=== PATIENT | female | born 2000 | race Hispanic/Latino ===

== ENCOUNTER 2019-12-29 08:57 | Outpatient (CLI) | payer OTHER, SELFPAY ==
[2019-12-29 09:50] LABS: Hemoglobin A1C 5.2 % (<5.7)
[2019-12-29 10:24] LABS: Thyroid Stimulating Hormone 0.731 uIU/mL (0.465-4.680)
[2019-12-29 10:25] LABS: Free T4 Free Thyroxine 0.67 ng/mL (0.78-2.19)
[2020-01-01 11:55] LABS: Testosterone Total 11 ng/dL (2-45)
[2020-01-01 14:32] LABS: DHEA-Sulfate 61 mcg/dL (51-321)
[2020-01-02 03:21] LABS: Insulin Level Total 29.7 uIU/mL (<=19.6)
[2020-01-02 05:23] LABS: Progesterone 0.3 ng/mL (***); Prolactin 8.7 ng/mL (***)
== END 2019-12-29 08:58 | disposition home or self-care (01) ==
PROVIDERS: PCP Family Medicine; Visit Provider Nurse Practitioner
DX: E28.2 Polycystic ovarian syndrome (principal)
CPT/HCPCS: 36415; 82627; 83036; 83525; 84144; 84146; 84403; 84439; 84443

== ENCOUNTER 2020-02-23 10:03 | Outpatient (CLI) | payer OTHER, SELFPAY ==
[2020-02-23 11:44] LABS: Free T4 Free Thyroxine 0.82 ng/mL (0.78-2.19)
== END 2020-02-23 10:04 | disposition home or self-care (01) ==
PROVIDERS: PCP Family Medicine; Visit Provider Nurse Practitioner
DX: R74.9 Abnormal serum enzyme level, unspecified (principal)
CPT/HCPCS: 36415; 83498; 84439; 84443

== ENCOUNTER 2020-03-16 10:15 | Outpatient (RCR) | payer OTHER, SELFPAY | END 2020-06-12 23:59 | disposition home or self-care (01) | LOC: ANHLAB 10:15 | PROVIDERS: PCP Family Medicine; Visit Provider Obstetrics & Gynecology Gynecology | DX: O26.21 Pregnancy care for patient with recurrent pregnancy loss, first trimester (principal); Z3A.00 Weeks of gestation of pregnancy not specified | CPT/HCPCS: 36415; 84702 ==

== ENCOUNTER 2020-03-20 17:06 | Emergency (ER) | payer OTHER, SELFPAY ==
[2020-03-20 17:12] VITALS: BP 138/107; PULSE 99; RESP 14; TEMP 36.3; O2SAT 100
[2020-03-20 17:26] LABS: Basophils Percent Auto 0.3 % (0.2-1.2); Eosinophils Absolute Auto 0.2 K/mm3 (0-0.3); Eosinophils Percent Auto 1.6 % (0-4.4); Hematocrit 38.9 % (37.0-47.0); Hemoglobin 12.8 g/dL (12.0-15.0); Immature Granulocyte Absolute 0.04 K/mm3 (0.00-0.031); Immature Granulocyte Percent A 0.3 % (0-0.5); Lymphocytes Absolute Auto 4.15 K/mm3 (0.9-3.2); Lymphocytes Percent Auto 30.9 % (18.3-44.2); Mean Corpuscular HGB Conc 32.9 g/dl (32-36); Mean Corpuscular Hemoglobin 28.6 pg (26-34); Monocytes Absolute Auto 0.8 K/mm3 (0.1-0.6); Monocytes Percent Auto 6.3 % (2.6-8.5); Neutrophils Absolute Auto 8.2 K/mm3 (1.3-6.7); Neutrophils Percent Auto 60.6 % (45.5-73.1); Platelet Count Result 317 k/mm3 (150-375); Red Blood Count 4.47 M/mm3 (4.2-5.4); Red Cell Distribution Width 13.2 % (11.5-14.5); White Blood Count 13.4 K/mm3 (4.5-10.0)
--- NOTE | 2020-03-20 17:33 | ED.ABDPAIN ---
HPI - Abdominal Pain General Chief Complaint: Abdominal Pain Stated Complaint: abdominal pain/ Time Seen by Provider: 03/20/20 17:32 History of Present Illness HPI narrative: Upper abdominal pain and bloating since this morning. Associated with mild nausea. She had a recent positive test. LMP 02/10. She is concerned because she has had 2 previous miscarriages. She has not had a bowel movmenet iin 4 days. No nausea, voiting, dysuria, hematuria, vaginal bleeding, discharge. Related Data Allergies Allergy/AdvReac Type Severity Reaction Status Date / Time nevaeh Allergy Unknown Verified 06/05/17 13:06 Nevaeh Allergy Severe Swelling Uncoded 05/08/18 18:39 Review of Systems Review of Systems: All systems reviewed & are unremarkable except as noted in HPI and below Constitutional: Constitutional: Denies fever(s) Cardiovascular: Cardiovascular: Denies chest pain Respiratory: Respiratory: Denies dyspnea Gastrointestinal: Gastrointestinal: Reports abdominal pain, Reports bloating, Reports constipation, Denies diarrhea, Denies nausea and Denies vomiting Genitourinary: Genitourinary: Denies abnormal vaginal bleeding, Denies hematuria, Denies dysuria, Denies pelvic pain and Denies vaginal discharge Musculoskeletal: Musculoskeletal: Denies back pain Neurologic: Denies dizziness and Denies weakness Psychiatric: Psychiatric: Reports anxiety PMFSH Past Medical History Medical History Migraine without aura and without status migrainosus, not intractable On oral contraceptive pills for non-contraception indication PCOS (polycystic ovarian syndrome) Sacrococcygeal pilonidal cyst with abscess Family History Family History Other Diabetes mellitus Hypertension Social History Social History Smoking status: Never smoker Alcohol intake: never Exam Const: General: healthy appearing, no acute distress and alert Orientation/consciousness: patient oriented x3 HENMT: Head: normal to inspection Neck: Neck: normal visual inspection Resp: Effort & Inspection: normal respiratory effort Auscultation: clear to auscultation bilaterally, no rales, no rhonchi and no wheezes Cardio: Jugular venous distension: no JVD Rate: regular rate Rhythm: regular rhythm Heart sounds: no murmurs GI: Inspection: non-distended GI Palp: Yes Soft to palpation, Yes Tenderness to palpation present (GI) (LUQ), No Guarding due to palpation present (GI) and No Rebound tenderness present Skin: General skin exam: normal color Neuro: General: patient oriented x3 and moves all extremities Speech: normal speech Extrem: General: no edema Psych: Appearance: well kempt Affect: normal affect Course Vital Signs Vital signs: Vital Signs Temperature 36.3 C L 03/20/20 17:12 Pulse Rate 99 03/20/20 17:12 Respiratory Rate 14 03/20/20 17:12 Blood Pressure 138/107 H 03/20/20 17:12 Pulse Oximetry 100 03/20/20 17:12 Temperature 36.3 C L 03/20/20 17:12 Pulse Rate 80 03/20/20 18:43 Respiratory Rate 20 03/20/20 18:43 Blood Pressure 128/88 03/20/20 18:43 Pulse Oximetry 100 03/20/20 18:43 MDM - Abdominal Pain MDM Narrative Medical decision making narrative: H&P suggests benign etiology unrelated to . I suggested a trial of stool softeners and OB follow-up. Differential Diagnosis Differential diagnosis: Likely constipation Medical Records Attestation: I reviewed the patient's medical records. Lab Data Attestation: I reviewed the patient's lab results. Result diagrams: 03/20/20 17:20 03/20/20 17:20 Labs: Lab Results 03/20/20 03/20/20 03/20/20 Range/Units 17:20 17:20 17:42 WBC 13.4 H (4.5-10.0) K/mm3 RBC 4.47 (4.2-5.4) M/mm3 Hgb 12.8 (12.0-15.0) g/dL Hct 38.9 (37.0-47.0)
[2020-03-20 17:44] LABS: Alanine Aminotransferase 46 U/L (4-35); Albumin Level 4.4 g/dL (3.5-5.1); Alkaline Phosphatase 67 U/L (38-126); Anion Gap 9 mmol/L (8-16); Aspartate Amino Transferase 43 U/L (14-36); Bilirubin,Total 0.4 mg/dL (0.2-1.3); Blood Urea Nitrogen 5 mg/dL (7-17); Calcium 9.2 mg/dL (8.4-10.2); Carbon Dioxide 25 mmol/L (22-30); Chloride 105 mmol/L (98-107); Estimated CRCL calculation 232 ml/min; Estimated Glomerular Filt Rate > 60; Glucose 91 mg/dL (65-105); Lipase 37 U/L (23-300); Potassium 3.6 mmol/L (3.4-5.0); Sodium 139 mmol/L (137-145)
[2020-03-20 18:05] LABS: Add Urine Microscopic? YES; Appearance Urine Clear (Clear); Bacteria Urine Trace /hpf; Bilirubin Urine Negative (Negative); Blood Urine Negative (Negative); Color Urine Yellow (Yellow); Glucose Urine UA Negative (Negative); Ketones Urine Negative (Negative); Leukocyte Esterase Ur Trace LEU/UL (Negative); Mucus Urine Rare /lpf; Nitrate Urine Negative (Negative); Protein Urine 1+ mg/dL (Negative); Specific Grav Ur 1.016 (1.001-1.035); Squamous Epithelial Cell Urine Moderate /hpf (Few); Urobilinogen Urine Negative mg/dL (<2.0); WBC Urine 0-3 /hpf
[2020-03-20 18:43] VITALS: BP 128/88; PULSE 80; RESP 20; O2SAT 100
== END 2020-03-20 18:47 | disposition home or self-care (01) ==
LOC: ANHED 18:08
PROVIDERS: Emergency Medicine; Emergency Provider Emergency Medicine; PCP Family Medicine
DX: O99.611 Diseases of the digestive system complicating pregnancy, first trimester (principal); K59.00 Constipation, unspecified; O99.281 Endocrine, nutritional and metabolic diseases complicating pregnancy, first trimester; E28.2 Polycystic ovarian syndrome; Z3A.00 Weeks of gestation of pregnancy not specified
CPT/HCPCS: 36415; 80053; 81001; 81025; 83690; 85025; 99283

== ENCOUNTER 2020-03-23 14:35 | Outpatient (CLI) | payer OTHER, SELFPAY ==
--- NOTE | ~2020-03-23 | US_ITS ---
EXAMINATION: US OB <=14 wk fetus w TV EXAM DATE: 03/23/2020 15:27 INDICATION: Uncertain dates. . 1st trimester. TECHNIQUE: Pelvic obstetrical transabdominal sonogram was performed by a technologist. There are mu ltiple grayscale and Doppler images available for interpretation. There are no earlier studies of th is gestation for comparison. FINDINGS: Uterus measures 8.7 x 6.0 x 5.0 cm. There is intrauterine gestation sac. pole with heart rate confirmed at 145 beats per minute. The 4 mm crown-rump length corresponds to estimated ge stational age by ultrasound of 6 weeks 0 days, estimated date of confinement 11/16/2020. Yolk sac is i dentified. There is no sonographic evidence of subchorionic hemorrhage. The ovaries are morpholog ically normal. IMPRESSION: Early live intrauterine gestation, age by crown-rump length 6 weeks 0 days. Reviewed, dictated and finalized at location A. CH TUTOR
== END 2020-03-23 14:36 | disposition home or self-care (01) ==
PROVIDERS: PCP Family Medicine; Visit Provider Nurse Practitioner
DX: Z36.87 Encounter for antenatal screening for uncertain dates (principal); Z3A.01 Less than 8 weeks gestation of pregnancy
CPT/HCPCS: 76801; 76817

== ENCOUNTER 2020-04-25 08:12 | Emergency (ER) | payer OTHER, SELFPAY ==
--- NOTE | ~2020-04-25 | US_ITS ---
EXAMINATION: US OB <= 14 weeks fetus DATE: 04/25/2020 10:09 INDICATION: 11 weeks . Bleeding. TECHNIQUE: Real-time transabdominal obstetric ultrasound. FINDINGS: No prior studies for comparison. The uterus measures 13.3 x 5.6 x 7.4 cm. There is an intrauterine gestational sac, with pole id entified. There is a small subchorionic hemorrhage measuring 1.5 x 2 x 0.6 cm. The crown rump length measures 4.3 cm. heart tones are identified measuring 139 BPM. IMPRESSION: 1. SL IUP with an EGA of 11 weeks, 0 days (EDC by initial ultrasound of 11/14/2020). 2: Small subchorionic hemorrhage. Reviewed, dictated and finalized at location B. ICAL DATA COORDINATOR IMPRESSION: 1. SL IUP with an EGA of 11 weeks, 0 days (EDC by initial ultrasound of 11/15/19 21). 2: Small subchorionic hemorrhage.
[2020-04-25 08:29] VITALS: BP 115/68; PULSE 79; RESP 14; TEMP 36.8; O2SAT 98
--- NOTE | 2020-04-25 09:43 | ED.PREGNANCY ---
HPI - General Chief complaint: Vaginal Bleeding Stated complaint: vag bleeding, 11 weeks preg Time Seen by Provider: 04/25/20 08:24 Source: patient Mode of arrival: ambulatory Limitations: no limitations History of Present Illness HPI Narrative: This is a 19 year old , about 11 weeks , that presents to the ER for vaginal bleeding noted this morning. Reports she noted a dark brown discharge on the tissue when she wiped today. Her OB is Dr. White. She has had a normal US this . Denies fever, pelvic pain, dysuria, or hematuria. Related Data Home Medications Medication Instructions Recorded Confirmed PNV no.[id number] acid tablet PO DAILY 04/25/20 [Complete ] aspirin [Baby Aspirin] 81 mg PO DAILY 04/25/20 metformin 750 mg PO BID 04/25/20 Allergies Allergy/AdvReac Type Severity Reaction Status Date / Time Jean Paul Allergy Severe Swelling Uncoded 04/25/20 08:37 Review of Systems Review of Systems: Narrative: CONSTITUTIONAL: Denies fever GASTROINTESTINAL: Denies abdominal pain, nausea, vomiting GENITOURINARY: Denies dysuria or hematuria. All systems reviewed & are unremarkable except as noted in HPI and below PMFSH Past Medical History Medical History Migraine without aura and without status migrainosus, not intractable On oral contraceptive pills for non-contraception indication PCOS (polycystic ovarian syndrome) Sacrococcygeal pilonidal cyst with abscess Family History Family History Other Diabetes mellitus Hypertension Social History Social History Smoking status: Never smoker Alcohol intake: never Gender identity (if verbalized by the patient): Female Exam Narrative: Exam Narrative: GENERAL: Well-appearing, well-nourished, and in no acute distress. HEAD: Normocephalic, atraumatic. EYES: EOMI. ENT: Mucous membranes moist. Oropharynx without tonsillar hypertrophy exudate or other lesions. CHEST: Clear to auscultation. No respiratory distress. No wheezes rales or rhonchi HEART: Regular rate and rhythm. No murmur heard. Normal peripheral pulses. ABDOMEN: Soft, nontender, nondistended, normal active bowel sounds. EXTREMITIES: Normal range of motion. No edema. SKIN: Warm, dry, no rash. NEURO: No focal deficits. Alert and oriented x3. PSYCH: Normal mood and affect PELVIC: Normal external genitalia. Normal appearing cervix, closed. Small amount of brown discharge in the vaginal vault Course Vital Signs Vital signs: Vital Signs Temperature 98.3 F 04/25/20 08:29 Pulse Rate 79 04/25/20 08:29 Respiratory Rate 14 04/25/20 08:29 Blood Pressure 115/68 04/25/20 08:29 Pulse Oximetry 98 04/25/20 08:29 Temperature 98.3 F 04/25/20 08:29 Pulse Rate 70 04/25/20 11:05 Respiratory Rate 16 04/25/20 11:05 Blood Pressure 130/77 04/25/20 11:05 Pulse Oximetry 98 04/25/20 11:05 MDM - OB/Uterine Contractions MDM Narrative Medical decision making narrative: Patient presents to the emergency department for bleeding noted today. She is 11 weeks . Denied any pelvic cramping or other symptoms. Her vitals are stable. Hemoglobin is 12. Metabolic panel without concerning findings. UA without evidence of infection. Patient is O+. I did notice small amount of probable old blood in the vaginal vault. No bright red bleeding. ultrasound shows a single living IUP with an EGA of 11 weeks and 0 days. Also shows a small subchorionic hematoma. Spoke with Dr. White about patient and workup. Patient to be instructed on nothing in the vagina. No heavy lifting. Would like her to follow-up for repeat ultrasound in the next couple weeks. Patient is stable and felt appropriate for further outpatient valuation. She was given warnings to return to the ER Lab Data Atte
[2020-04-25 09:46] LABS: Basophils Absolute Auto 0.1 K/mm3 (0.0-0.1); Basophils Percent Auto 0.4 % (0.2-1.2); Eosinophils Absolute Auto 0.2 K/mm3 (0-0.3); Eosinophils Percent Auto 1.3 % (0-4.4); Hematocrit 36.9 % (37.0-47.0); Immature Granulocyte Absolute 0.04 K/mm3 (0.00-0.031); Immature Granulocyte Percent A 0.4 % (0-0.5); Lymphocytes Absolute Auto 3.02 K/mm3 (0.9-3.2); Lymphocytes Percent Auto 27.1 % (18.3-44.2); Mean Corpuscular HGB Conc 32.5 g/dl (32-36); Mean Corpuscular Hemoglobin 28.6 pg (26-34); Mean Corpuscular Volume 88.1 fl (80-100); Mean Platelet Volume 9.9 fl (7.4-10.4); Monocytes Absolute Auto 0.5 K/mm3 (0.1-0.6); Monocytes Percent Auto 4.6 % (2.6-8.5); Neutrophils Absolute Auto 7.4 K/mm3 (1.3-6.7); Neutrophils Percent Auto 66.2 % (45.5-73.1); Platelet Count Result 265 k/mm3 (150-375); Red Blood Count 4.19 M/mm3 (4.2-5.4); Red Cell Distribution Width 13.7 % (11.5-14.5); White Blood Count 11.1 K/mm3 (4.5-10.0)
[2020-04-25 11:05] VITALS: BP 130/77; PULSE 70; RESP 16; O2SAT 98
[2020-04-25 11:29] LABS: Add Urine Microscopic? YES; Appearance Urine Clear (Clear); Bacteria Urine Trace /hpf; Bilirubin Urine Negative (Negative); Blood Urine Negative (Negative); Color Urine Straw (Yellow); Glucose Urine UA Negative (Negative); Ketones Urine Negative (Negative); Leukocyte Esterase Ur Trace LEU/UL (Negative); Mucus Urine Rare /lpf; Nitrate Urine Negative (Negative); Protein Urine Negative (Negative); Specific Grav Ur 1.008 (1.001-1.035); Squamous Epithelial Cell Urine Occasional /hpf (Few); Urobilinogen Urine Negative mg/dL (<2.0); WBC Urine 0-3 /hpf
[2020-04-25 11:31] LABS: Anion Gap 12 mmol/L (8-16); Blood Urea Nitrogen 6 mg/dL (7-17); Calcium 9.4 mg/dL (8.4-10.2); Carbon Dioxide 18 mmol/L (22-30); Chloride 108 mmol/L (98-107); Estimated CRCL calculation 237 ml/min; Estimated Glomerular Filt Rate > 60; Glucose 85 mg/dL (65-105); Potassium 3.8 mmol/L (3.4-5.0); Sodium 138 mmol/L (137-145)
[2020-04-25 12:37] VITALS: BP 134/76; PULSE 78; RESP 16; O2SAT 100
== END 2020-04-25 12:38 | disposition home or self-care (01) ==
PROVIDERS: Physician Assistant; Emergency Provider Emergency Medicine; PCP Family Medicine
DX: O46.91 Antepartum hemorrhage, unspecified, first trimester (principal); O99.281 Endocrine, nutritional and metabolic diseases complicating pregnancy, first trimester; E28.2 Polycystic ovarian syndrome; Z3A.11 11 weeks gestation of pregnancy
CPT/HCPCS: 36415; 76801; 80048; 81001; 84702; 85025; 85461; 99284

== ENCOUNTER 2020-05-12 09:13 | Outpatient (RCR) | payer OTHER, SELFPAY ==
[2020-05-12 09:59] LABS: Basophils Percent Auto 0.3 % (0.2-1.2); Eosinophils Absolute Auto 0.2 K/mm3 (0-0.3); Eosinophils Percent Auto 2.2 % (0-4.4); Hematocrit 36.7 % (37.0-47.0); Hemoglobin 11.6 g/dL (12.0-15.0); Immature Granulocyte Absolute 0.04 K/mm3 (0.00-0.031); Immature Granulocyte Percent A 0.4 % (0-0.5); Lymphocytes Absolute Auto 2.93 K/mm3 (0.9-3.2); Lymphocytes Percent Auto 26.3 % (18.3-44.2); Mean Corpuscular HGB Conc 31.6 g/dl (32-36); Mean Corpuscular Hemoglobin 27.7 pg (26-34); Mean Corpuscular Volume 87.6 fl (80-100); Monocytes Absolute Auto 0.6 K/mm3 (0.1-0.6); Monocytes Percent Auto 5.2 % (2.6-8.5); Neutrophils Absolute Auto 7.3 K/mm3 (1.3-6.7); Neutrophils Percent Auto 65.6 % (45.5-73.1); Platelet Count Result 277 k/mm3 (150-375); Red Blood Count 4.19 M/mm3 (4.2-5.4); Red Cell Distribution Width 13.7 % (11.5-14.5); White Blood Count 11.1 K/mm3 (4.5-10.0)
[2020-05-12 10:52] LABS: Vitamin D 25 Hydroxy 32.9 ng/mL
[2020-05-12 10:54] LABS: HIV 1/2 Ab P24 Ag Result Negative (Negative)
[2020-05-12 11:13] LABS: Hepatitis B Surface Antigen Negative (Negative); Rubella IgG Antibody 17.3 IU/ML
[2020-05-13 12:55] LABS: Rapid Plasma Reagin Non-Reactive (NonReactive)
== END 2020-08-10 23:59 | disposition home or self-care (01) ==
LOC: ANHLAB 09:13
PROVIDERS: PCP Family Medicine; Visit Provider Obstetrics & Gynecology Gynecology
DX: Z11.4 Encounter for screening for human immunodeficiency virus [HIV] (principal)
CPT/HCPCS: 36415; 82306; 83036; 85025; 86592; 86703; 86762; 86850; 86900; 86901; 87340; G0432

== ENCOUNTER 2020-05-20 13:44 | Outpatient (CLI) | payer OTHER, SELFPAY ==
--- NOTE | ~2020-05-20 | US_ITS ---
EXAMINATION: US OB follow up DATE: 05/20/2020 14:17 INDICATION: Subchorionic hemorrhage TECHNIQUE: Real-time ultrasound of the pelvis was performed. The interpreting radiologist was not pre sent for the study. COMPARISON: 04/25/2020 FINDINGS: There is a single living fetus in variable presentation. The placenta is anterior. No subch orionic hemorrhage is identified. cardiac activity and movement are noted. heart ra te is 144 beats per minute (bpm). The amniotic fluid index is subjectively normal. The following biometric data were obtained: Biparietal diameter (BPD): 2.4 cm; head circumference (HC): 9.7 cm; abdominal circumference (AC): 8.1 cm; femur length (FL): 1.2 cm. These measurements are concordant. Estimated weight is 90 g +/- 13 g, which correlates with the 23rd percentile when 11/16/2020 is u sed as estimated date of delivery. On some images, there is questionable ventriculomegaly although th is is difficult to assess due to early gestational age and body habitus. As single measurements, these parameters are each equal to the following estimated gestational ages w ith ranges of +/- 2 standard deviations: BPD: 14 weeks 1 days +/- 1 weeks 1 days. HC: 14 weeks 3 days +/- 1 weeks 1 days. AC: 14 weeks 3 days +/- 1 weeks 5 days. FL: 13 weeks 5 days +/- 1 weeks 3 days. estimated gestational age based solely on measurements from this exam is 14 weeks 1 days +/- 1 weeks 0 days. IMPRESSION: 1. Single living fetus in variable presentation. 2. No persistent subchorionic hemorrhage identified. 3. estimated gestational age based solely on measurements from this exam is 14 weeks 1 days +/- 1 weeks 0 days. 4. Possible ventriculomegaly although assessment is difficult due to early gestational age and body h abitus. Recommend attention on second trimester anatomic survey. Reviewed, dictated and finalized at location A. P MACHINE OPERATOR IMPRESSION: 1. Single living fetus in variable presentation. 2. No persistent subchorionic hemorrhage identified. 3. estimated gestational age based solely on measurements from this exam is 14 weeks 1 days +/- 1 weeks 0 days. 4. Possible ventriculomegaly although assessment is difficult due to early gest ational age and body habitus. Recommend attention on second trimester julianna tomic survey.
== END 2020-05-20 13:45 | disposition home or self-care (01) ==
PROVIDERS: PCP Family Medicine; Visit Provider Obstetrics & Gynecology Gynecology
DX: O36.8920 Maternal care for other specified fetal problems, second trimester, not applicable or unspecified (principal); Z3A.14 14 weeks gestation of pregnancy
CPT/HCPCS: 76816

== ENCOUNTER 2020-11-03 09:07 | Inpatient (IN) | payer OTHER, SELFPAY ==
[2020-11-03] VITALS (105 sets, daily range): BP systolic 111–178; BP diastolic 48–123; PULSE 49–104; TEMP 36.4–37; O2SAT 98–100; BMI 42.6
--- NOTE | 2020-11-03 09:29 | LDADM ---
This patient, Pennie Guerin, was admitted to Labor/Delivery/Recovery 104 on 11/03/20 at 09:07. Plans for labor, pain management and were discussed with patient. Patient/family oriented to hospital policies and general routines including ID bracelet, bed and alarms, visiting hours, pain management, procedures, bathroom and other care routines, personal items, smoking policy, room service/diet and guest tray routines, infant security routines, and visiting hours. Patient/Family are encouraged to report perceived risks to care and to ask questions if they do not understand what they are told or what they should do. See OBIX for further documentation.
[2020-11-03 09:42] LABS: Basophils Percent Auto 0.4 % (0.2-1.2); Eosinophils Absolute Auto 0.3 K/mm3 (0-0.3); Eosinophils Percent Auto 2.6 % (0-4.4); Hematocrit 40.3 % (37.0-47.0); Hemoglobin 13.1 g/dL (12.0-15.0); Immature Granulocyte Absolute 0.07 K/mm3 (0.00-0.031); Immature Granulocyte Percent A 0.7 % (0-0.5); Lymphocytes Absolute Auto 2.37 K/mm3 (0.9-3.2); Lymphocytes Percent Auto 23.9 % (18.3-44.2); Mean Corpuscular HGB Conc 32.5 g/dl (32-36); Mean Corpuscular Hemoglobin 29.7 pg (26-34); Mean Corpuscular Volume 91.4 fl (80-100); Mean Platelet Volume 11.2 fl (7.4-10.4); Monocytes Absolute Auto 0.5 K/mm3 (0.1-0.6); Monocytes Percent Auto 4.7 % (2.6-8.5); Neutrophils Absolute Auto 6.7 K/mm3 (1.3-6.7); Neutrophils Percent Auto 67.7 % (45.5-73.1); Platelet Count Result 195 k/mm3 (150-375); Red Blood Count 4.41 M/mm3 (4.2-5.4); Red Cell Distribution Width 15.4 % (11.5-14.5); White Blood Count 9.9 K/mm3 (4.5-10.0)
[2020-11-03 09:52] LABS: Uric Acid 4.4 mg/dL (2.5-7.5)
[2020-11-03 09:55] LABS: Alanine Aminotransferase 15 U/L (4-35); Albumin Level 3.5 g/dL (3.5-5.1); Alkaline Phosphatase 101 U/L (38-126); Anion Gap 4 mmol/L (8-16); Aspartate Amino Transferase 24 U/L (14-36); Bilirubin,Total 0.3 mg/dL (0.2-1.3); Blood Urea Nitrogen 10 mg/dL (7-17); Carbon Dioxide 22 mmol/L (22-30); Chloride 109 mmol/L (98-107); Estimated CRCL calculation 182 ml/min; Estimated Glomerular Filt Rate > 60; Glucose 97 mg/dL (65-110); Sodium 135 mmol/L (137-145)
[2020-11-03] MEDS: LACTATED RINGERS 1,000 ML 125 ML IV CONT ×2 (10:00→23:33)
[2020-11-03] MEDS: OXYTOCIN 30 UNITS/NS 500 ML 30 UNITS/500 ML BAG 6 UNITS IV CONT (10:00)
--- NOTE | 2020-11-03 10:13 | WPDANESEPP ---
Anes - Eval Pre Procedure Procedure: Labor Pain Management Date/Time: 11/03/20 10:13 Surgeon: Cindy Preop Diagnosis: Pain During Labor Pre Op Diagnosis: IOL Patient Data Age: 20 Gender: F Height: 1.75 m Weight: 131 kg Last Vital Signs Pulse 83 11/03/20 10:01 BP 134/92 H 11/03/20 10:01 Allergies Allergy/AdvReac Type Severity Reaction Status Date / Time Jean Paul Allergy Severe Swelling Uncoded 04/25/20 08:37 Home Medications Medication Instructions Recorded Confirmed Type PNV no.[id number] acid 1 tablet PO DAILY 04/25/20 11/03/20 History [Complete ] aspirin [Baby Aspirin] 81 mg PO DAILY 04/25/20 11/03/20 History metformin 750 mg PO DAILY 04/25/20 11/03/20 History ergocalciferol (vitamin D2) 1,250 mcg PO WEEKLY 10/26/20 11/03/20 History [Vitamin D2] ferrous sulfate 325 mg PO DAILY 10/26/20 11/03/20 History Laboratory Tests 11/03/20 11/03/20 11/03/20 09:24 09:24 09:24 WBC 9.9 K/mm3 K/mm3 (4.5-10.0) RBC 4.41 M/mm3 M/mm3 (4.2-5.4) Hgb 13.1 g/dL g/dL (12.0-15.0) Hct 40.3 % % (37.0-47.0) MCV 91.4 fl fl (80-100) MCH 29.7 pg pg (26-34) MCHC 32.5 g/dl g/dl (32-36) RDW 15.4 % H % (11.5-14.5) Plt Count 195 k/mm3 k/mm3 (150-375) MPV 11.2 fl H fl (7.4-10.4) Immature Gran % (Auto) 0.7 % H % (0-0.5) Neut % (Auto) 67.7 % % (45.5-73.1) Lymph % (Auto) 23.9 % % (18.3-44.2) [place] % (Auto) 4.7 % % (2.6-8.5) Eos % (Auto) 2.6 % % (0-4.4) Baso % (Auto) 0.4 % % (0.2-1.2) Lymph # (Auto) 2.37 K/mm3 K/mm3 (0.9-3.2) [place] # (Auto) 0.5 K/mm3 K/mm3 (0.1-0.6) Eos # (Auto) 0.3 K/mm3 K/mm3 (0-0.3) Baso # (Auto) 0.0 K/mm3 K/mm3 (0.0-0.1) Abs Immat Gran (auto) 0.07 K/mm3 H K/mm3 (0.00-0.031) Absolute Neuts (auto) 6.7 K/mm3 K/mm3 (1.3-6.7) Absolute Nucleated RBC 0.0 K/mm3 K/mm3 (0.0-0.012) Nucleated RBC % 0.0 % % (0.0-0.2) Sodium Potassium Chloride Carbon Dioxide Anion Gap BUN Creatinine Estim Creat Clear Calc Estimated GFR Glucose Uric Acid 4.4 mg/dL mg/dL (2.5-7.5) Calcium Total Bilirubin AST ALT Alkaline Phosphatase Total Protein Albumin RPR Pending 11/03/20 09:24 WBC RBC Hgb Hct MCV MCH MCHC RDW Plt Count MPV Immature Gran % (Auto) Neut % (Auto) Lymph % (Auto) [place] % (Auto) Eos % (Auto) Baso % (Auto) Lymph # (Auto) [place] # (Auto) Eos # (Auto) Baso # (Auto) Abs Immat Gran (auto) Absolute Neuts (auto) Absolute Nucleated RBC Nucleated RBC % Sodium 135 mmol/L L mmol/L (137-145) Potassium 4.0 mmol/L mmol/L (3.4-5.0) Chloride 109 mmol/L H mmol/L (98-107) Carbon Dioxide 22 mmol/L mmol/L (22-30) Anion Gap 4 mmol/L L mmol/L (8-16) BUN 10 mg/dL mg/dL (7-17) Creatinine 0.60 mg/dL L mg/dL (0.7-1.0) Estim Creat Clear Calc 182 ml/min ml/min Estimated GFR > 60 (59 - ) Glucose 97 mg/dL mg/dL (65-110) Uric Acid Calcium 9.0 mg/dL mg/dL (8.4-10.2) Total Bilirubin 0.3 mg/dL mg/dL (0.2-1.3) AST 24 U/L U/L (14-36) ALT 15 U/L U/L (4-35) Alkaline Phosphatase 101 U/L U/L (38-126) Total Protein 6.0 g/dL L g/dL (6.3-8.2) Albumin 3.5 g/dL g/dL (3.5-5.1) RPR : gestational age (edc11/17/20) HCG: positive Patient hx anesthesia problems: none Family hx anesthesia problems: none PMFSH Past Medical History Medical History (Reviewed 03/22/20 @
--- NOTE | 2020-11-03 16:51 | WPDOBADMIT ---
Obstetrics - Admit Note Admission Note: record reviewed. No pertinent additions to the history and/or any subsequent changes in the physical findings that are not consistent with the expected course of the were found. Additions to the history and/or subsequent changes in the physical findings follow. Here for MIL for gestational hypertension. Cervix now 2/-2 AROM with clear fluid. Continue pitocin. FHTs reactive.
--- NOTE | 2020-11-03 21:14 | WPDANESEPPF ---
Anes - Initial Pre Proc Eval Procedure: labor epidural Date/Time: 11/03/202047 Surgeon: Polly White MD Pre Op Diagnosis: labor pain Pre Op Diagnosis: IOL Patient Data Age: 20 Gender: F Height: 1.75 m Weight: 131 kg Last Vital Signs Temp 36.7 C 11/03/20 20:00 Pulse 68 11/03/20 21:13 BP 145/78 H 11/03/20 21:13 Pulse Ox 100 11/03/20 21:12 Allergies Allergy/AdvReac Type Severity Reaction Status Date / Time [place] Allergy Severe Swelling Uncoded 04/25/20 08:37 Home Medications Medication Instructions Recorded Confirmed Type PNV no.[id number] acid 1 tablet PO DAILY 04/25/20 11/03/20 History [Complete ] aspirin [Baby Aspirin] 81 mg PO DAILY 04/25/20 11/03/20 History metformin 750 mg PO DAILY 04/25/20 11/03/20 History ergocalciferol (vitamin D2) 1,250 mcg PO WEEKLY 10/26/20 11/03/20 History [Vitamin D2] ferrous sulfate 325 mg PO DAILY 10/26/20 11/03/20 History Laboratory Tests 11/03/20 11/03/20 11/03/20 09:24 09:24 09:24 WBC 9.9 K/mm3 K/mm3 (4.5-10.0) RBC 4.41 M/mm3 M/mm3 (4.2-5.4) Hgb 13.1 g/dL g/dL (12.0-15.0) Hct 40.3 % % (37.0-47.0) MCV 91.4 fl fl (80-100) MCH 29.7 pg pg (26-34) MCHC 32.5 g/dl g/dl (32-36) RDW 15.4 % H % (11.5-14.5) Plt Count 195 k/mm3 k/mm3 (150-375) MPV 11.2 fl H fl (7.4-10.4) Immature Gran % (Auto) 0.7 % H % (0-0.5) Neut % (Auto) 67.7 % % (45.5-73.1) Lymph % (Auto) 23.9 % % (18.3-44.2) [place] % (Auto) 4.7 % % (2.6-8.5) Eos % (Auto) 2.6 % % (0-4.4) Baso % (Auto) 0.4 % % (0.2-1.2) Lymph # (Auto) 2.37 K/mm3 K/mm3 (0.9-3.2) [place] # (Auto) 0.5 K/mm3 K/mm3 (0.1-0.6) Eos # (Auto) 0.3 K/mm3 K/mm3 (0-0.3) Baso # (Auto) 0.0 K/mm3 K/mm3 (0.0-0.1) Abs Immat Gran (auto) 0.07 K/mm3 H K/mm3 (0.00-0.031) Absolute Neuts (auto) 6.7 K/mm3 K/mm3 (1.3-6.7) Absolute Nucleated RBC 0.0 K/mm3 K/mm3 (0.0-0.012) Nucleated RBC % 0.0 % % (0.0-0.2) Sodium Potassium Chloride Carbon Dioxide Anion Gap BUN Creatinine Estim Creat Clear Calc Estimated GFR Glucose Uric Acid 4.4 mg/dL mg/dL (2.5-7.5) Calcium Total Bilirubin AST ALT Alkaline Phosphatase Total Protein Albumin RPR Pending Blood Type Antibody Screen 11/03/20 11/03/20 09:24 09:24 WBC RBC Hgb Hct MCV MCH MCHC RDW Plt Count MPV Immature Gran % (Auto) Neut % (Auto) Lymph % (Auto) [place] % (Auto) Eos % (Auto) Baso % (Auto) Lymph # (Auto) [place] # (Auto) Eos # (Auto) Baso # (Auto) Abs Immat Gran (auto) Absolute Neuts (auto) Absolute Nucleated RBC Nucleated RBC % Sodium 135 mmol/L L mmol/L (137-145) Potassium 4.0 mmol/L mmol/L (3.4-5.0) Chloride 109 mmol/L H mmol/L (98-107) Carbon Dioxide 22 mmol/L mmol/L (22-30) Anion Gap 4 mmol/L L mmol/L (8-16) BUN 10 mg/dL mg/dL (7-17) Creatinine 0.60 mg/dL L mg/dL (0.7-1.0) Estim Creat Clear Calc 182 ml/min ml/min Estimated GFR > 60 (59 - ) Glucose 97 mg/dL mg/dL (65-110) Uric Acid Calcium 9.0 mg/dL mg/dL (8.4-10.2) Total Bilirubin 0.3 mg/dL mg/dL (0.2-1.3) AST 24 U/L U/L (14-36) ALT 15 U/L U/L (4-35) Alkaline Phosphatase 101 U/L U/L (38-126) Total Protein 6.0 g/dL L g/dL (6.
[2020-11-04] VITALS (304 sets, daily range): BP systolic 107–168; BP diastolic 41–135; PULSE 27–242; RESP 16–20; TEMP 35.8–36.9; O2SAT 84–100
[2020-11-04] MEDS: LACTATED RINGERS 1,000 ML 125 ML IV CONT (05:10)
[2020-11-04] MEDS: OXYTOCIN 30 UNITS/NS 500 ML 30 UNITS/500 ML BAG 6 UNITS IV CONT (05:10)
[2020-11-04] MEDS: LABETALOL HCL 100 MG TABLET PO (06:52)
[2020-11-04] MEDS: ONDANSETRON INJ 4 MG/2 ML VIAL IV PUSH (08:48)
[2020-11-04] MEDS: AMPICILLIN 2 GM/NS 100 ML 2 GM/100 ML BAG IVPB (11:05)
[2020-11-04] MEDS: miSOPROStol 200 MCG TABLET 1000 MCG RECTAL (11:41)
[2020-11-04] MEDS: CARBOPROST TROMETHAMINE 250 MCG/ML AMPUL IM (11:48)
[2020-11-04] MEDS: LACTATED RINGERS 1,000 ML 999 ML IV CONT ×2 (11:55→12:01)
[2020-11-04] MEDS: OXYTOCIN 30 UNITS/NS 500 ML 30 UNITS/500 ML BAG 999 UNITS IV CONT (11:55)
[2020-11-04 12:07] LABS: Basophils Absolute Auto 0.1 K/mm3 (0.0-0.1); Basophils Percent Auto 0.3 % (0.2-1.2); Eosinophils Percent Auto 0.2 % (0-4.4); Hematocrit 41.6 % (37.0-47.0); Hemoglobin 12.8 g/dL (12.0-15.0); Immature Granulocyte Percent A 0.5 % (0-0.5); Lymphocytes Absolute Auto 2.06 K/mm3 (0.9-3.2); Lymphocytes Percent Auto 10.5 % (18.3-44.2); Mean Corpuscular HGB Conc 30.8 g/dl (32-36); Mean Corpuscular Hemoglobin 29.3 pg (26-34); Mean Corpuscular Volume 95.2 fl (80-100); Mean Platelet Volume 10.8 fl (7.4-10.4); Monocytes Absolute Auto 0.7 K/mm3 (0.1-0.6); Monocytes Percent Auto 3.4 % (2.6-8.5); Neutrophils Absolute Auto 16.8 K/mm3 (1.3-6.7); Neutrophils Percent Auto 85.1 % (45.5-73.1); Platelet Count Result 213 k/mm3 (150-375); Red Blood Count 4.37 M/mm3 (4.2-5.4); Red Cell Distribution Width 15.4 % (11.5-14.5); White Blood Count 19.7 K/mm3 (4.5-10.0)
--- NOTE | 2020-11-04 12:09 | PM.OBPRVD ---
OB - Delivery Note Procedure Delivery date: 11/04/20 Procedure: events: Induced HTN Intrapartal events: Prolonged Labor > 20 hours Induction method: AROM and per pitocin protocol Delivery monitor: external FHT and internal uterine Route of delivery: Laceration Description: Perineal - 2nd Degree Delivery repair: vicryl (3-0) Specimen: Yes (placenta) Quantitative Blood Loss (ml): 1,493 Anesthesia type: Epidural Disposition: floor Complications: post-placenta delivery heavy vaginal bleeding fundal massage and uterine exploration, bimanual massage and called for cytotec 1000 mcg cytotec given per rectum hemabate given bakri balloon placed with 150 cc fluid no further vaginal bleeding or bleeding through tube noted Baby Date of : 11/04/20 Weeks of gestation at delivery: 38 Infant gender: Female Weight (pounds): 5 Weight (ounces): 4 presentation: vertex Placenta delivery description: Spontaneous cord vessel description: 3 Vessels score one minute: 8 score five minutes: 9
--- NOTE | 2020-11-04 12:17 | PM.OBDSVD ---
DS: Admitting Diagnosis Admitting Diagnosis IUP 38 weeks gestational hypertension MIL DS: Discharge Diagnosis Discharge Diagnosis (1) induced hypertension: Code(s): O13.9 - Gestational [-induced] hypertension without significant proteinuria, unspecified trimester Status: Acute (2) 38 weeks gestation of : Code(s): Z3A.38 - 38 weeks gestation of Status: Acute (3) (normal spontaneous vaginal delivery): Code(s): O80 - Encounter for full-term uncomplicated delivery Status: Acute (4) hemorrhage: Code(s): O72.1 - Other immediate hemorrhage Status: Acute OB - DS: Summary OB Procedures : Ultrasound OB Procedures Intrapartum: Spontaneous Vag Delivery OB Procedures: : None Peripartum Data Infant Delivery Method: Natural Vaginal Laceration Description: Perineal - 2nd Degree complications: uterine atony (pp hemorrhage) Status at Discharge Functional status at discharge: independent ambulation Overall status at discharge: patient is progressing back to baseline Time Spent with Patient Time attestation: Total time spent providing and/or coordinating discharge services: DS: Data Data Completed and Pending Labs on day of discharge: Labs from last 24 hours 11/04/20 11/04/20 12:01 12:01 WBC 19.7 H RBC 4.37 Hgb 12.8 Hct 41.6 MCV 95.2 MCH 29.3 MCHC 30.8 L RDW 15.4 H Plt Count 213 MPV 10.8 H Immature Gran % (Auto) 0.5 Neut % (Auto) 85.1 H Lymph % (Auto) 10.5 L [place] % (Auto) 3.4 Eos % (Auto) 0.2 Baso % (Auto) 0.3 Lymph # (Auto) 2.06 [place] # (Auto) 0.7 H Eos # (Auto) 0.0 Baso # (Auto) 0.1 Abs Immat Gran (auto) 0.10 H Absolute Neuts (auto) 16.8 H Absolute Nucleated RBC 0.0 Nucleated RBC % 0.0 PT Pending INR Pending APTT Pending Fibrinogen Pending D-Dimer Pending Discharge Plan Discharge Attending physician on discharge: Polly White Discharging Clinician: Polly White Anticipated Discharge Date/Time: 11/06/20 12:19 Patient Disposition: Home, Self-Care Activity: may shower and pelvic rest Diet: regular Patient Instructions: Antibiotic Form Stand Alone Forms: General Discharge Information Follow-up/Referrals: Polly White MD [Physician] - 1 Week (and 6 week) Discharge Medications: Continued metformin 750 mg Tablet Extended Release 24 Hr 750 mg PO DAILY RF: 0 Complete 30-975 mg-mcg Tablet 1 tablet PO DAILY RF: 0 ergocalciferol (vitamin D2) [Vitamin D2] 1,250 mcg (50,000 unit) Capsule 1,250 mcg PO WEEKLY RF: 0 ferrous sulfate 325 mg (65 mg iron) Tablet,Delayed Release (Dr/Ec) 325 mg PO DAILY RF: 0 Discontinued aspirin [Baby Aspirin] 81 mg Tablet,Chewable 81 mg PO DAILY RF: 0 Date of admission: 11/03/20 09:07 Primary Care Provider: Christine Saucedo Admitting Provider: Polly White Attending physician on admission: Polyl White Condition: Stable
[2020-11-04 12:25] LABS: Rapid Plasma Reagin Non-Reactive (NonReactive)
[2020-11-04 12:25] LABS: Partial Thromboplastin Time 25.8 SECONDS (22.3-36.8); Prothrombin Time 12.6 Seconds (11.1-14.7)
[2020-11-04 12:36] LABS: Fibrinogen 352 mg/dl (215-510)
[2020-11-04] MEDS: LOPERAMIDE HCL 2 MG CAPSULE 4 MG PO (13:35)
[2020-11-04] MEDS: OXYTOCIN 30 UNITS/NS 500 ML 30 UNITS/500 ML BAG 125 UNITS IV CONT (13:35)
[2020-11-04] MEDS: IBUPROFEN 600 MG TABLET PO (13:42)
[2020-11-04] MEDS: HYDROcodone/acetaminophen (*CRX) 10-325 MG TABLET 1 TAB PO (14:46)
--- NOTE | 2020-11-04 16:38 | PM.OBPNVD ---
OB - PN: Subj Subjective Date/time seen: 11/04/20 16:38 Interval history: onset of back pain OB - PN: Obj Data Labs CBC & Chem 7: 11/04/20 12:01 11/03/20 09:24 Labs: Laboratory Results - last 24 hr 11/03/20 11/04/20 11/04/20 09:24 12:01 12:01 WBC 19.7 H RBC 4.37 Hgb 12.8 Hct 41.6 MCV 95.2 MCH 29.3 MCHC 30.8 L RDW 15.4 H Plt Count 213 MPV 10.8 H Immature Gran % (Auto) 0.5 Neut % (Auto) 85.1 H Lymph % (Auto) 10.5 L [place] % (Auto) 3.4 Eos % (Auto) 0.2 Baso % (Auto) 0.3 Lymph # (Auto) 2.06 [place] # (Auto) 0.7 H Eos # (Auto) 0.0 Baso # (Auto) 0.1 Abs Immat Gran (auto) 0.10 H Absolute Neuts (auto) 16.8 H Absolute Nucleated RBC 0.0 Nucleated RBC % 0.0 PT 12.6 INR 1.0 APTT 25.8 Fibrinogen 352 D-Dimer 1.40 H RPR Non-reactive OB - PN A/P Assessment and Plan (1) hemorrhage: Code(s): O72.1 - Other immediate hemorrhage Status: Acute Assessment and Plan: Jesus balloon removed slowly over 20 min and observed over 35 min and bleeding minimal. Fundus firm at U Time Spent With Patient Time: Total time spent is greater than 50% in coordination of care (as documented) at patient's floor/unit and/or counseling patient: Exam GI: GI Palp: Yes Other GI palpation findings present (fundus firm at +1 )
--- NOTE | 2020-11-04 19:07 | OBPPTRN ---
Patient transferred to post room # 285 via bed. Support person present. Oriented to unit, room, information board, rooming in, admission packet and security measures. Patient verbalizes understanding.
[2020-11-05 05:03] VITALS: BP 109/68; PULSE 91; RESP 16; TEMP 37; O2SAT 99
[2020-11-05 05:36] LABS: Hematocrit 27.4 % (37.0-47.0); Hemoglobin 8.9 g/dL (12.0-15.0)
[2020-11-05 06:53] VITALS: BP 137/81; PULSE 103; RESP 16; TEMP 37.1; O2SAT 95
--- NOTE | 2020-11-05 09:47 | WPDANLDPN2 ---
Anes-Prog Note L&D Date/Time: 11/05/20 09:47 Comfortable throughout: labor and delivery Neuraxial method: epidural Epidural/Spinal procedure site: clean & non-tender Neuro status: Neuro function grossly intact. Cardiovascular status: normal Respiratory status: normal Airway patency: baseline Mental status: baseline Post-Op hydration status: normal Vital Signs: Last Vital Signs Temp 37.1 C 11/05/20 06:53 Pulse 103 H 11/05/20 06:53 Resp 16 11/05/20 06:53 BP 137/81 11/05/20 06:53 Pulse Ox 95 11/05/20 06:53 Pain score (VAS): 03/27 I/O: Intake & Output 11/04/20 11/05/20 11/05/20 23:59 07:59 15:59 Intake Total 2350 Output Total 595 Balance 1755 Post-procedural complaints: none Patient feedback: Patient satisfied with anesthetic care.
[2020-11-05] MEDS: POLYSACCHARIDE IRON COMPLEX 150 MG CAPSULE PO ×2 (10:22→17:34)
[2020-11-05] MEDS: DOCUSATE SODIUM 100 MG CAPSULE PO ×2 (10:22→17:35)
--- NOTE | 2020-11-05 11:53 | PM.OBPNVD ---
OB - PN: Subj Subjective Date/time seen: 11/05/20 11:53 Interval history: onset of back pain Patient comments: no complaints and pain well controlled baby status: doing well OB - PN: Obj Data Labs CBC & Chem 7: 11/05/20 04:45 11/03/20 09:24 Labs: Laboratory Results - last 24 hr 11/03/20 11/04/20 11/04/20 09:24 12:01 12:01 WBC 19.7 H RBC 4.37 Hgb 12.8 Hct 41.6 MCV 95.2 MCH 29.3 MCHC 30.8 L RDW 15.4 H Plt Count 213 MPV 10.8 H Immature Gran % (Auto) 0.5 Neut % (Auto) 85.1 H Lymph % (Auto) 10.5 L [place] % (Auto) 3.4 Eos % (Auto) 0.2 Baso % (Auto) 0.3 Lymph # (Auto) 2.06 [place] # (Auto) 0.7 H Eos # (Auto) 0.0 Baso # (Auto) 0.1 Abs Immat Gran (auto) 0.10 H Absolute Neuts (auto) 16.8 H Absolute Nucleated RBC 0.0 Nucleated RBC % 0.0 PT 12.6 INR 1.0 APTT 25.8 Fibrinogen 352 D-Dimer 1.40 H RPR Non-reactive 11/05/20 04:45 WBC RBC Hgb 8.9 L D Hct 27.4 L MCV MCH MCHC RDW Plt Count MPV Immature Gran % (Auto) Neut % (Auto) Lymph % (Auto) [place] % (Auto) Eos % (Auto) Baso % (Auto) Lymph # (Auto) [place] # (Auto) Eos # (Auto) Baso # (Auto) Abs Immat Gran (auto) Absolute Neuts (auto) Absolute Nucleated RBC Nucleated RBC % PT INR APTT Fibrinogen D-Dimer RPR OB - PN A/P Assessment and Plan (1) hemorrhage: Code(s): O72.1 - Other immediate hemorrhage Status: Acute Assessment and Plan: Doing well. Normal lochia. No symptoms of anemia (2) induced hypertension: Code(s): O13.9 - Gestational [-induced] hypertension without significant proteinuria, unspecified trimester Status: Acute Assessment and Plan: BP's good since delivery. No diuresis yet but with PP hemorrhage urine is more than adequate. Continue I/O's. Plan day: 1 Plan: routine care Time Spent With Patient Time: Total time spent is greater than 50% in coordination of care (as documented) at patient's floor/unit and/or counseling patient: Exam : Bimanual exam- vagina & uterus: other (Uterus firm, nt @U)
[2020-11-05 13:20] VITALS: BP 125/75; PULSE 114; RESP 16; O2SAT 99
[2020-11-05] MEDS: metFORMIN HCL 500 MG TABLET PO ×2 (13:42→17:35)
[2020-11-05 17:35] VITALS: BP 125/78; PULSE 94; RESP 16; TEMP 36.4; O2SAT 98
[2020-11-05 19:15] VITALS: BP 134/72; PULSE 99; RESP 16; TEMP 36.5; O2SAT 99
[2020-11-05] MEDS: ACETAMINOPHEN 325 MG TABLET 650 MG PO (21:20)
[2020-11-06] VITALS: BP 125/84; PULSE 81
[2020-11-06 04:00] VITALS: BP 141/88; PULSE 84
[2020-11-06 09:21] VITALS: BP 143/97; PULSE 93; RESP 99; TEMP 36.3; O2SAT 99
[2020-11-06] MEDS: POLYSACCHARIDE IRON COMPLEX 150 MG CAPSULE PO (09:21)
[2020-11-06] MEDS: metFORMIN HCL 500 MG TABLET PO (09:21)
[2020-11-06] MEDS: DOCUSATE SODIUM 100 MG CAPSULE PO (09:21)
--- NOTE | 2020-11-06 09:27 | P.PNOB_ITS ---
OB - PN: Subj Subjective Date/time seen: 11/06/20 09:27 Interval history: onset of back pain Patient comments: no complaints and pain well controlled baby status: doing well OB - PN: Obj Data Labs CBC & Chem 7: 11/05/20 04:45 11/03/20 09:24 OB - PN A/P Assessment and Plan (1) hemorrhage: Code(s): O72.1 - Other immediate hemorrhage Status: Acute Assessment and Plan: stable iron BID (2) induced hypertension: Code(s): O13.9 - Gestational [-induced] hypertension without significant pro teinuria, unspecified trimester Status: Acute Assessment and Plan: Good diuresis BP stable Plan day: 2 Plan: routine care, discharge home and follow up 6 weeks (and 1 week) Time Spent With Patient Time: Total time spent is greater than 50% in coordination of care (as documented) at patient's floor/unit and/or counseling patient: Exam : Bimanual exam- vagina & uterus: other (Uterus firm, nt @U)
--- NOTE | 2020-11-06 12:25 | PC.NURSE ---
1000 Patient viewed the discharge video Mother & Baby Care, The First Two Weeks . Patient was given the opportunity and encouraged to ask questions. Patient verbalized understanding of information shared and has been given the mother/baby guide for home reference.
[2020-11-08 11:13] VITALS: BP 143/92; PULSE 78; RESP 20; TEMP 37.6; O2SAT 99
== END 2020-11-06 12:18 | disposition home or self-care (01) | DRG 560 ==
LOC: ANHLDR 11-04 12:20 → ANHOB2 11-04 19:11
PROVIDERS: Admitting Provider Obstetrics & Gynecology Gynecology; PCP Family Medicine; Visit Provider Obstetrics & Gynecology Gynecology
DX: O13.4 Gestational [pregnancy-induced] hypertension without significant proteinuria, complicating childbirth (principal); O70.1 Second degree perineal laceration during delivery; O72.1 Other immediate postpartum hemorrhage; O42.92 Full-term premature rupture of membranes, unspecified as to length of time between rupture and onset of labor; O76 Abnormality in fetal heart rate and rhythm complicating labor and delivery; Z3A.38 38 weeks gestation of pregnancy; Z37.0 Single live birth
CPT/HCPCS: 36415; 80053; 84550; 85014; 85018; 85025; 85380; 85384; 85610; 85730; 86592; 86850; 86900; 86901; 88307; A9270; J0290; J2405; J2590; J2795; J7120

== ENCOUNTER 2021-11-17 09:29 | Outpatient (CLI) | payer OTHER, SELFPAY ==
[2021-11-17 12:46] LABS: Hemoglobin A1C 5.6 % (<5.7)
[2021-11-21 10:52] LABS: Insulin Level Total 35.5 uIU/mL (<=19.6)
== END 2021-11-17 09:30 | disposition home or self-care (01) ==
LOC: ANHLAB 09:31
PROVIDERS: Visit Provider Obstetrics & Gynecology Gynecology
DX: E28.2 Polycystic ovarian syndrome (principal); E55.9 Vitamin D deficiency, unspecified
CPT/HCPCS: 36415; 82306; 83036; 83525

== ENCOUNTER 2022-03-16 14:03 | Outpatient (RCR) | payer OTHER, SELFPAY | END 2022-06-12 23:59 | disposition home or self-care (01) | LOC: ANHLAB 14:03 | PROVIDERS: Visit Provider Obstetrics & Gynecology Gynecology | DX: O26.21 Pregnancy care for patient with recurrent pregnancy loss, first trimester (principal); Z3A.00 Weeks of gestation of pregnancy not specified | CPT/HCPCS: 36415; 84702 ==

== ENCOUNTER 2022-03-27 17:32 | Outpatient (CLI) | payer OTHER, MEDICAID, SELFPAY ==
--- NOTE | ~2022-03-27 | US_ITS ---
EXAMINATION: US OB <=14 wk fetus w TV DATE: 03/27/2022 19:28 INDICATION: Spotting during first trimester TECHNIQUE: Real-time pelvic ultrasound utilizing both a transvaginal and transabdominal probe was pe rformed. The interpreting radiologist was not present for the study. COMPARISON: None. FINDINGS: The uterus measures 8.9 x 5.3 x 6.4 cm. There is an intrauterine gestational sac. A yolk sac and fet al pole are identified. The crown rump length measures 1.0 cm, which correlates with an estimated ges tational age of 7 weeks and 1 days. heart motion is identified measuring 156 beats per minute ( bpm) by M-mode Doppler. The right ovary measures 2.7 x 1.6 x 1.5 cm. The left ovary measures 3.5 x 2.0 x 2.3 cm. Vascular kiki w identified at both ovaries on color Doppler. There is no free fluid in the pelvis. IMPRESSION: 1. Single living fetus with heart of 156 bpm. 2. Gestational age by ultrasound of 7 weeks 1 day(s) +/- 5 day(s) with ultrasound estimated date of delivery (ALISSA) of 11/12/2022. Reviewed, dictated and finalized at location A. [employer] IMPRESSION: 1. Single living fetus with heart of 156 bpm. 2. Gestational age by ultrasound of 7 weeks 1 day(s) +/- 5 day(s) with ultraso und estimated date of delivery (ALISSA) of 11/12/2022.
== END 2022-03-27 17:33 | disposition home or self-care (01) ==
LOC: ANHIMG 17:37
PROVIDERS: Visit Provider Obstetrics & Gynecology Gynecology
DX: O26.851 Spotting complicating pregnancy, first trimester (principal); Z3A.01 Less than 8 weeks gestation of pregnancy
CPT/HCPCS: 76801; 76817

== ENCOUNTER 2022-05-09 07:54 | Outpatient (CLI) | payer OTHER, MEDICAID, SELFPAY ==
--- NOTE | ~2022-05-09 | US_ITS ---
Pelvic ultrasound. Clinical History: Second trimester , vaginal bleeding Technique: Realtime transabdominal and transvaginal scanning of the pelvis was performed. Color flow Doppler and Doppler spectral analysis were performed. Findings: The uterus is anteverted, and contains an intrauterine gestation. Placenta is probably ante riorly located. [place]-rump length of 7.4 cm corresponds to an estimated gestational age of 13 weeks 4 days. heart rate is 159 bpm. The right ovary is not visualized. No significant right ovarian or adnexal mass is seen. The left ovary measures 1.9 x 3.0 x 1.7 cm. No significant left ovarian or adnexal mass is seen. There is no evidence of free fluid in the cul de sac. Impression: Live intrauterine gestation with estimated gestational age of 13 weeks 4 days. heart rate is 15 9 bpm. Reviewed, dictated and finalized at [place]. L CHIPPER Impression: Live intrauterine gestation with estimated gestational age of 13 weeks 4 days. heart rate is 159 bpm.
== END 2022-05-09 07:55 | disposition home or self-care (01) ==
PROVIDERS: PCP Family Medicine; Visit Provider Obstetrics & Gynecology Gynecology
DX: O26.851 Spotting complicating pregnancy, first trimester (principal); Z3A.13 13 weeks gestation of pregnancy
CPT/HCPCS: 76801

== ENCOUNTER → 2022-06-13 15:16 | Outpatient (CLI) | payer OTHER, SELFPAY ==
--- NOTE | ~2022-06-13 | US_ITS ---
EXAMINATION: US OB /maternal detail DATE: 06/13/2022 15:54 INDICATION: Second trimester anatomic survey TECHNIQUE: Real-time ultrasound of the pelvis was performed. COMPARISON: None. FINDINGS: There is a single living fetus in breech presentation. The placenta is anterior and 2.4 cm from the i nternal cervical os. The cervical length is 3.3 cm. heart rate is 151 beats per minute (bpm). cardiac activity and movement are noted. The amniotic fluid index is subjectively normal. anatomic evaluation is moderately limited by the patient's body habitus. The following anatomy was grossly identified as normal: 4 chamber heart - the outflow tracts of the heart are not clearly visualized 3 vessel cord cord insertion kidneys urinary bladder stomach spine diaphragm ventricles cisterna magna cerebellum The following biometric data were obtained: Biparietal diameter (BPD): 4.1 cm; head circumference (HC): 15.4 cm; abdominal circumference (AC): 12 .8 cm; femur length (FL): 2.5 cm. These measurements are concordant. Estimated weight is 222 g +/- 33 g, which correlates with the 32nd percentile when 11/12/2022 is used as estimated date of delivery. As single measurements, these parameters are each equal to the following estimated gestational ages w ith ranges of +/- 2 standard deviations: BPD: 18 weeks 3 days ( 16 weeks 5 days - 20 weeks 1 days). HC: 18 weeks 3 days ( 16 weeks 6 days - 19 weeks 6 days). AC: 18 weeks 2 days ( 16 weeks 2 days - 20 weeks 3 days). FL: 17 weeks 5 days ( 16 weeks 2 days - 19 weeks 0 days). estimated gestational age based solely on measurements from this exam is 18 weeks 2 days +/- 1 weeks 2 days. IMPRESSION: 1. Single living fetus in breech presentation. 2. Estimated weight is 222 g +/- 33 g, which correlates with the 32nd percentile when 11/12/2022 is used as estimated date of delivery. 3. Grossly normal anatomic survey, evaluation moderately limited. Outflow tracts the heart not clearly visualized. Reviewed, dictated and finalized at location F. IMPRESSION: 1. Single living fetus in breech presentation. 2. Estimated weight is 222 g +/- 33 g, which correlates with the 32nd per centile when 11/12/2022 is used as estimated date of delivery. 3. Grossly normal anatomic survey, evaluation moderately limited. Outflow tracts the heart not clearly visualized.
== END ==
PROVIDERS: PCP Obstetrics & Gynecology Gynecology; Visit Provider Obstetrics & Gynecology Gynecology
DX: Z36.9 Encounter for antenatal screening, unspecified (principal); Z3A.00 Weeks of gestation of pregnancy not specified; Z3A.18 18 weeks gestation of pregnancy
CPT/HCPCS: 76805

== ENCOUNTER → 2022-07-13 15:14 | Outpatient (CLI) | payer OTHER, SELFPAY ==
--- NOTE | ~2022-07-13 | US_ITS ---
EXAMINATION: US OB limited DATE: 07/13/2022 15:45 INDICATION: Incomplete anatomic survey. TECHNIQUE: Real-time ultrasound of the pelvis was performed. COMPARISON: Ultrasound 06/13/2022 FINDINGS: There is a single fetus in vertex presentation. The placenta is anterior, 5.6 cm from the cervix. Fe sho heart rate is 147 beats per minute (bpm). The amniotic fluid volume is subjectively normal. The c ervical length is 3.3 cm on transabdominal images, which is normal. Views of the heart includin g ventricular outflow tract views are normal. IMPRESSION: 1. Single living fetus in vertex presentation. 2. Normal heart. Reviewed, dictated and finalized at location E.
== END ==
PROVIDERS: PCP Obstetrics & Gynecology Gynecology; Visit Provider Obstetrics & Gynecology Gynecology
DX: Z34.90 Encounter for supervision of normal pregnancy, unspecified, unspecified trimester (principal); Z3A.00 Weeks of gestation of pregnancy not specified
CPT/HCPCS: 76815

== ENCOUNTER → 2022-08-30 15:57 | Outpatient (CLI) | payer OTHER, SELFPAY ==
--- NOTE | ~2022-08-30 | US_ITS ---
EXAMINATION: US OB follow up DATE: 08/30/2022 16:23 INDICATION: Size greater than dates during third trimester TECHNIQUE: Real-time ultrasound of the pelvis was performed. The interpreting radiologist was not pre sent for the study. COMPARISON: 07/13/2022 FINDINGS: There is a single living fetus in vertex presentation. The placenta is anterior. card iac activity and movement are noted. heart rate is 143 beats per minute (bpm). The amniot ic fluid index is 13 cm which is normal (normal range: 9.2 cm to 23.1 cm). The following biometric data were obtained: Biparietal diameter (BPD): 7.5 cm; head circumference (HC): 27.6 cm; abdominal circumference (AC): 26 .1 cm; femur length (FL): 5.6 cm. These measurements are concordant. Estimated weight is 1489 g +/- 223 g, which correlates with the 57th percentile when 11/12/2022 is used as estimated date of delivery. As single measurements, these parameters are each equal to the following estimated gestational ages w ith ranges of +/- 2 standard deviations: BPD: 30 weeks 2 days ( 27 weeks 1 days - 33 weeks 2 days). HC: 30 weeks 1 days ( 27 weeks 1 days - 33 weeks 1 days). AC: 30 weeks 2 days ( 27 weeks 2 days - 33 weeks 2 days). FL: 29 weeks 3 days ( 27 weeks 2 days - 31 weeks 3 days). estimated gestational age based solely on measurements from this exam is 30 weeks 0 days +/- 2 weeks 1 days. IMPRESSION: 1. Single living fetus in vertex presentation. 2. Normal amniotic fluid index. 3. Estimated weight is 1489 g +/- 223 g, which correlates with the 57th percentile when 11/13/19 23 is used as estimated date of delivery. Reviewed, dictated and finalized at location A. IMPRESSION: 1. Single living fetus in vertex presentation. 2. Normal amniotic fluid index. 3. Estimated weight is 1489 g +/- 223 g, which correlates with the 57th p ercentile when 11/12/2022 is used as estimated date of delivery.
== END ==
PROVIDERS: PCP Obstetrics & Gynecology Gynecology; Visit Provider Advanced Practice Midwife
DX: O36.63X0 Maternal care for excessive fetal growth, third trimester, not applicable or unspecified (principal); Z3A.30 30 weeks gestation of pregnancy
CPT/HCPCS: 76816

== ENCOUNTER 2022-10-23 16:45 | Outpatient (CLI) | payer OTHER, MEDICAID, SELFPAY ==
[2022-10-23] VITALS (8 sets, daily range): BP systolic 119–137; BP diastolic 72–90; PULSE 79–94
[2022-10-23 18:04] LABS: Basophils Percent Auto 0.2 % (0.2-1.2); Eosinophils Absolute Auto 0.3 K/mm3 (0-0.3); Eosinophils Percent Auto 2.2 % (0-4.4); Hematocrit 37.3 % (37.0-47.0); Hemoglobin 11.6 g/dL (12.0-15.0); Immature Granulocyte Absolute 0.09 K/mm3 (0.00-0.031); Immature Granulocyte Percent A 0.7 % (0-0.5); Lymphocytes Absolute Auto 3.17 K/mm3 (0.9-3.2); Lymphocytes Percent Auto 25.4 % (18.3-44.2); Mean Corpuscular HGB Conc 31.1 g/dl (32-36); Mean Corpuscular Hemoglobin 26.9 pg (26-34); Mean Corpuscular Volume 86.3 fl (80-100); Mean Platelet Volume 10.6 fl (7.4-10.4); Monocytes Absolute Auto 0.7 K/mm3 (0.1-0.6); Monocytes Percent Auto 5.7 % (2.6-8.5); Neutrophils Absolute Auto 8.2 K/mm3 (1.3-6.7); Neutrophils Percent Auto 65.8 % (45.5-73.1); Platelet Count Result 271 k/mm3 (150-375); Red Blood Count 4.32 M/mm3 (4.2-5.4); Red Cell Distribution Width 14.7 % (11.5-14.5); White Blood Count 12.5 K/mm3 (4.5-10.0)
[2022-10-23 18:07] LABS: Appearance Urine Clear (Clear); Bilirubin Urine Negative (Negative); Blood Urine Negative (Negative); Color Urine Yellow (Yellow); Glucose Urine UA Negative (Negative); Ketones Urine Negative (Negative); Leukocyte Esterase Ur Negative LEU/UL (Negative); Nitrate Urine Negative (Negative); Protein Urine Negative (Negative); Specific Grav Ur 1.014 (1.001-1.035); Urobilinogen Urine 0.2 mg/dL (<2.0)
[2022-10-23 18:09] LABS: Creatinine Urine 68.8 mg/dL; Total Protein Urine Random 16 mg/dL; Ur Ttl Prot Creatinine Ratio 0.23 mg/mg (0-0.20)
[2022-10-23 18:13] LABS: Alanine Aminotransferase 18 U/L (6-35); Albumin Level 3.7 g/dL (3.5-5.1); Alkaline Phosphatase 114 U/L (38-126); Anion Gap 7 mmol/L (8-16); Aspartate Amino Transferase 21 U/L (14-36); Bilirubin,Total 0.3 mg/dL (0.2-1.3); Blood Urea Nitrogen 9 mg/dL (7-17); Calcium 9.1 mg/dL (8.4-10.2); Carbon Dioxide 25 mmol/L (22-30); Chloride 104 mmol/L (98-107); Estimated Glomerular Filt Rate > 60; Glucose 93 mg/dL (65-110); Potassium 4.7 mmol/L (3.4-5.0); Sodium 136 mmol/L (137-145); Uric Acid 3.8 mg/dL (2.5-7.5)
[2022-10-23 18:22] LABS: Add Urine Microscopic? NO
--- NOTE | 2022-10-23 18:45 | PC.NURSE ---
Dr. White informed of reactive NST, BP's, and lab results. Order for pt to complete 24 hr urine collection at home. OK to discharge to home.
--- NOTE | 2022-10-23 18:45 | PC.NURSE ---
Dr. White notified of lab results, vital signs. Okay to discharge with 24 hour urine.
== END 2022-10-23 18:56 | disposition home or self-care (01) ==
LOC: ANHOBOP 16:54 → ANHOBPP 16:55
PROVIDERS: PCP Family Medicine; Visit Provider Obstetrics & Gynecology Gynecology
DX: O13.9 Gestational [pregnancy-induced] hypertension without significant proteinuria, unspecified trimester (principal); Z3A.00 Weeks of gestation of pregnancy not specified
CPT/HCPCS: 36415; 59025; 80053; 81003; 82570; 84156; 84550; 85025; 99199

== ENCOUNTER 2022-10-24 16:54 | Outpatient (CLI) | payer OTHER, MEDICAID, SELFPAY ==
[2022-10-24 17:11] VITALS: BMI 42.1
[2022-10-24 18:07] LABS: Collection Time Urine 24 HOURS; Patient Weight 285 Lbs
[2022-10-24 18:10] LABS: Total Volume 24 Hour Urine 2000 ml
[2022-10-24 18:22] LABS: Creatinine Clearance Urine 175.3 ml/min (75-125); Creatinine Urine 87.3 mg/dL; Total Protein Urine 24 Hr 180 mg/24hr (28-141); Total Protein Urine Random 9 mg/dL
== END 2022-10-24 16:55 | disposition home or self-care (01) ==
LOC: ANHOBOP 17:03
PROVIDERS: PCP Family Medicine; Visit Provider Obstetrics & Gynecology Gynecology
DX: Z34.90 Encounter for supervision of normal pregnancy, unspecified, unspecified trimester (principal); Z3A.00 Weeks of gestation of pregnancy not specified
CPT/HCPCS: 81050; 82575; 84156

== ENCOUNTER 2022-11-05 06:08 | Inpatient (IN) | payer OTHER, MEDICAID, SELFPAY ==
[2022-11-05] VITALS (157 sets, daily range): BP systolic 104–185; BP diastolic 58–122; PULSE 63–133; TEMP 36–37.2; O2SAT 92–100; BMI 41.3
[2022-11-05 07:25] LABS: Basophils Percent Auto 0.3 % (0.2-1.2); Eosinophils Absolute Auto 0.2 K/mm3 (0-0.3); Eosinophils Percent Auto 1.7 % (0-4.4); Hematocrit 38.4 % (37.0-47.0); Hemoglobin 11.9 g/dL (12.0-15.0); Immature Granulocyte Absolute 0.09 K/mm3 (0.00-0.031); Immature Granulocyte Percent A 0.8 % (0-0.5); Lymphocytes Absolute Auto 2.88 K/mm3 (0.9-3.2); Lymphocytes Percent Auto 24.6 % (18.3-44.2); Mean Corpuscular Hemoglobin 26.9 pg (26-34); Mean Corpuscular Volume 86.7 fl (80-100); Mean Platelet Volume 11.2 fl (7.4-10.4); Monocytes Absolute Auto 0.5 K/mm3 (0.1-0.6); Monocytes Percent Auto 4.4 % (2.6-8.5); Neutrophils Percent Auto 68.2 % (45.5-73.1); Platelet Count Result 259 k/mm3 (150-375); Red Blood Count 4.43 M/mm3 (4.2-5.4); Red Cell Distribution Width 14.9 % (11.5-14.5); White Blood Count 11.7 K/mm3 (4.5-10.0)
[2022-11-05] MEDS: LACTATED RINGERS 1,000 ML 125 ML (07:31)
[2022-11-05] MEDS: OXYTOCIN 30 UNITS/NS 500 ML 30 UNITS/500 ML BAG (07:31)
[2022-11-05 07:36] LABS: Alanine Aminotransferase 20 U/L (6-35); Albumin Level 3.5 g/dL (3.5-5.1); Alkaline Phosphatase 126 U/L (38-126); Anion Gap 6 mmol/L (8-16); Aspartate Amino Transferase 26 U/L (14-36); Bilirubin,Total 0.3 mg/dL (0.2-1.3); Blood Urea Nitrogen 9 mg/dL (7-17); Calcium 9.1 mg/dL (8.4-10.2); Carbon Dioxide 19 mmol/L (22-30); Chloride 106 mmol/L (98-107); Estimated CRCL calculation 207 ml/min; Estimated Glomerular Filt Rate > 60; Glucose 129 mg/dL (65-110); Potassium 3.5 mmol/L (3.4-5.0); Sodium 131 mmol/L (137-145); Uric Acid 4.8 mg/dL (2.5-7.5)
[2022-11-05 08:16] LABS: HIV 1/2 Ab P24 Ag Result Negative (Negative)
--- NOTE | 2022-11-05 09:21 | WPDANESEPP ---
Anes - Eval Pre Procedure Procedure: Labor Pain Management Date/Time: 11/05/22 09:21 Surgeon: Cindy Preop Diagnosis: Pain during labor Pre Op Diagnosis: Induction of Labor Patient Data Age: 22 Gender: F Height: 1.75 m Weight: 127 kg Last Vital Signs Temp 96.8 F L 11/05/22 07:30 Pulse 73 11/05/22 09:01 BP 129/87 11/05/22 09:01 O2 Del Method Room Air 11/05/22 06:43 Allergies Allergy/AdvReac Type Severity Reaction Status Date / Time No Known Allergies Allergy Verified 10/12/22 14:31 Home Medications Medication Instructions Recorded Confirmed Type metformin 500 mg tablet 1,000 mg PO BID 05/01/22 11/05/22 History prenat.vits,angel,wdn-lwsa-lhiyg 1 tablet PO DAILY 05/01/22 10/23/22 History ergocalciferol (vitamin D2) 1,000 50,000 unit PO WEEKLY 10/12/22 11/05/22 History unit capsule ferrous sulfate 27 mg iron tablet 27 mg PO DAILY 10/12/22 10/23/22 History Laboratory Tests 11/05/22 06:45 WBC 11.7 H K/mm3 (4.5-10.0) RBC 4.43 M/mm3 (4.2-5.4) Hgb 11.9 L g/dL (12.0-15.0) Hct 38.4 % (37.0-47.0) MCV 86.7 fl (80-100) MCH 26.9 pg (26-34) MCHC 31.0 L g/dl (32-36) RDW 14.9 H % (11.5-14.5) Plt Count 259 k/mm3 (150-375) MPV 11.2 H fl (7.4-10.4) Immature Gran % (Auto) 0.8 H % (0-0.5) Neut % (Auto) 68.2 % (45.5-73.1) Lymph % (Auto) 24.6 % (18.3-44.2) [place] % (Auto) 4.4 % (2.6-8.5) Eos % (Auto) 1.7 % (0-4.4) Baso % (Auto) 0.3 % (0.2-1.2) Lymph # (Auto) 2.88 K/mm3 (0.9-3.2) [place] # (Auto) 0.5 K/mm3 (0.1-0.6) Eos # (Auto) 0.2 K/mm3 (0-0.3) Baso # (Auto) 0.0 K/mm3 (0.0-0.1) Abs Immat Gran (auto) 0.09 H K/mm3 (0.00-0.031) Absolute Neuts (auto) 8.0 H K/mm3 (1.3-6.7) Absolute Nucleated RBC 0.0 K/mm3 (0.0-0.012) Nucleated RBC % 0.0 % (0.0-0.2) Sodium 131 L mmol/L (137-145) Potassium 3.5 mmol/L (3.4-5.0) Chloride 106 mmol/L (98-107) Carbon Dioxide 19 L mmol/L (22-30) Anion Gap 6 L mmol/L (8-16) BUN 9 mg/dL (7-17) Creatinine 0.50 L mg/dL (0.7-1.0) Estim Creat Clear Calc 207 ml/min Estimated GFR > 60 (59 - ) Glucose 129 H mg/dL (65-110) Uric Acid 4.8 mg/dL (2.5-7.5) Calcium 9.1 mg/dL (8.4-10.2) Total Bilirubin 0.3 mg/dL (0.2-1.3) AST 26 U/L (14-36) ALT 20 U/L (6-35) Alkaline Phosphatase 126 U/L (38-126) Total Protein 7.0 g/dL (6.3-8.2) Albumin 3.5 g/dL (3.5-5.1) RPR Pending HIV 1&2 Ab/P24 Ag 4thGn Negative (Negative) Blood Type O Positive Antibody Screen Negative : gestational age (edc 11/12/22) Patient hx anesthesia problems: none Family hx anesthesia problems: none Prior surgeries: tonsillectomy Results Review: All pre-operative results and documents have been reviewed as part of the pre-operative evaluation. [facility] Past Medical History Medical History Cellulitis of buttock Dietary counseling and surveillance (03/14/17) Encounter for counseling regarding contraception Encounter for incision and drainage procedure History of migraine headaches Intractable chronic cluster headache Migraine without aura and without status migrainosus, not intractable On oral contraceptive pills for non-contraception indication PCOS (polycystic ovarian syndrome) Sacrococcygeal pilonidal cyst with abscess Family History Family History Father Diabetes mellitus Heart disease Hypertension High cholesterol Mother Diabetes mellitus High cholesterol Hypertension Social History Social History Social History: Smoking status: Never smoker Second hand tobacco smoke exposure: No Alcohol intake: never Substance use: never Substance use
--- NOTE | 2022-11-05 11:26 | WPDOBADMIT ---
Obstetrics - Admit Note Admission Note: record reviewed. No pertinent additions to the history and/or any subsequent changes in the physical findings that are not consistent with the expected course of the were found. Additions to the history and/or subsequent changes in the physical findings follow. The patient is admitted for medical induction of labor at 39 weeks with gestational hypertension. Cervix remains 1cm thick and high. heart tones are category 1. Continue Pitocin.
[2022-11-05 12:37] LABS: Rapid Plasma Reagin Non-Reactive (NonReactive)
--- NOTE | 2022-11-05 14:43 | PM.OBPNLAB ---
Pain Control Date/time seen: 11/05/22 14:43 Pain control: tolerating well Pelvic Exam Dilation (cm): 2 Effacement (%): 50 station: -2 (anterior) Amniotic membrane status: Ruptured (clear fluid with AROM) Contractions Contraction pattern: Regular Contraction intensity: Moderate Status status: Category l Assessment and Plan Assessment: induction ongoing
[2022-11-05] MEDS: LACTATED RINGERS 1,000 ML 125 ML IV CONT (14:55)
[2022-11-05] MEDS: ONDANSETRON INJ 4 MG/2 ML VIAL IV PUSH (22:19)
[2022-11-06] VITALS (36 sets, daily range): BP systolic 113–153; BP diastolic 57–95; PULSE 76–149; RESP 16–18; TEMP 36.2–36.7; O2SAT 96–100
--- NOTE | 2022-11-06 01:18 | P.PCNOB_ITS ---
OB - Delivery Note Procedure Delivery date: 11/06/22 Procedure: Events: Gestational Hypertension Induction method: AROM and Per Pitocin Protocol Delivery monitor: External FHT and Internal Uterine Route of delivery: Laceration Description: Perineal - 2nd Degree Delivery repair: vicryl (3-0) Specimen: Yes (placenta) Quantitative Blood Loss (ml): 200 Anesthesia type: Epidural Disposition: Floor Baby Date of : 11/06/22 Weeks of gestation at delivery: 39 Infant gender: Female presentation: vertex position: Left Occiput Posterior Placenta delivery description: Spontaneous Cord Vessel Description: 3 Vessels and Delayed Cord Clamping score one minute: 8 score five minutes: 9 Narrative: meconium noted by RN when put in position for delivery customer service technician present for delivery
--- NOTE | 2022-11-06 01:20 | PM.OBDSVD ---
DS: Admitting Diagnosis Discharge Date 11/08/22 Admitting Diagnosis IUP 39 wks Gestational hypertension PCOS DS: Discharge Diagnosis Discharge Diagnosis (1) (normal spontaneous vaginal delivery): Code(s): O80 - Encounter for full-term uncomplicated delivery Status: Acute (2) induced hypertension: Code(s): O13.9 - Gestational [-induced] hypertension without significant proteinuria, unspecified trimester Status: Acute OB - DS: Summary OB Procedures : NST and Ultrasound OB Procedures Intrapartum: Spontaneous Vag Delivery OB Procedures: : None Peripartum Data Infant Delivery Method: Natural Vaginal Laceration Description: Perineal - 2nd Degree complications: none Status at Discharge Functional status at discharge: independent ambulation Overall status at discharge: patient is progressing back to baseline Time Spent with Patient Time attestation: Total time spent providing and/or coordinating discharge services: DS: Data Data Completed and Pending Labs on day of discharge: Labs from last 24 hours 11/05/22 06:45 WBC 11.7 H RBC 4.43 Hgb 11.9 L Hct 38.4 MCV 86.7 MCH 26.9 MCHC 31.0 L RDW 14.9 H Plt Count 259 MPV 11.2 H Immature Gran % (Auto) 0.8 H Neut % (Auto) 68.2 Lymph % (Auto) 24.6 [place] % (Auto) 4.4 Eos % (Auto) 1.7 Baso % (Auto) 0.3 Lymph # (Auto) 2.88 [place] # (Auto) 0.5 Eos # (Auto) 0.2 Baso # (Auto) 0.0 Abs Immat Gran (auto) 0.09 H Absolute Neuts (auto) 8.0 H Absolute Nucleated RBC 0.0 Nucleated RBC % 0.0 Sodium 131 L Potassium 3.5 Chloride 106 Carbon Dioxide 19 L Anion Gap 6 L BUN 9 Creatinine 0.50 L Estim Creat Clear Calc 207 Estimated GFR > 60 Glucose 129 H Uric Acid 4.8 Calcium 9.1 Total Bilirubin 0.3 AST 26 ALT 20 Alkaline Phosphatase 126 Total Protein 7.0 Albumin 3.5 RPR Non-reactive HIV 1&2 Ab/P24 Ag 4thGn Negative Blood Type O Positive Antibody Screen Negative Discharge Plan Discharge Attending physician on discharge: Polly White Consulting providers: Shauna Tanner; Angle Conklin Discharging Clinician: Angle Conlkin Anticipated Discharge Date/Time: 11/07/22 11:00 Patient Disposition: Home, Self-Care Activity: may shower and pelvic rest Diet: regular Wound Care Instructions: follow printed instructions Discharge Instructions: Ibuprofen 600mg (3 over the counter tablets) every 6 hours for pain Continue taking your vitamin and any other supplements as previously directed (Examples: Iron, Vitamin D). You may take Tylenol 1000mg over the counter every 6 hours as needed for pain. Do not exceed 4000mg of Tylenol daily. You may continue using tucks pads and dermoplast spray if needed for a few more days. Check BP daily. Call for any readings over 150/100 (if either value is elevated-call) Education: Mom and Baby Guide Given to: Mother Follow-Up: Call your delivering provider's office for an appointment to be seen in: 1 week for blood pressure check Mom and baby should come to the [facility] for the follow-up appointment. Appointment Date/Time: November 08, 2022 at 11:00 am What to expect at your follow-up visit: Blood Pressure Check & Physical Assessment Call [phone] if you are unable to keep your appointment time. BREAST CARE: * Wear a snug supportive bra. * For engorgement discomfort: Breast Feeding: * Apply warm moist washcloths * Express milk as needed to relieve engorgement * Wear loose clothing Bottle Feeding: * May apply ice packs * For sore nipples: * Identify correct latch-on * Apply warm moist washcloths before and after nursing * Air dry nipples after nursing * May apply [place] cream to nipples EPISIOTOMY/PERINEAL CARE: * Until bleeding stops, use your [place] bottle aft
[2022-11-06] MEDS: OXYTOCIN 30 UNITS/NS 500 ML 30 UNITS/500 ML BAG 125 UNITS IV CONT (01:42)
[2022-11-06] MEDS: WITCH HAZEL 40 PADS 1 PAD TOPICAL (02:58)
[2022-11-06] MEDS: BENZOCAINE 20% AER SPR (*SP) 56 GM CAN 1 SPRAY TOPICAL (02:58)
--- NOTE | 2022-11-06 03:15 | PC.NURSE ---
Patient transferred to post room #285 per wheelchair from labor and delivery. Support person present. Oriented to unit, room, information board, rooming in, admission packet and security measures. Patient verbalizes understanding.
[2022-11-06] MEDS: DOCUSATE SODIUM 100 MG CAPSULE PO ×2 (08:33→16:48)
[2022-11-06] MEDS: metFORMIN HCL 500 MG TABLET 1000 MG PO ×2 (08:33→16:49)
[2022-11-06] MEDS: MULTIVIT/MIN/PREN/FOL AC/IRON TABLET 1 TAB PO (08:33)
[2022-11-06] MEDS: IBUPROFEN 600 MG TABLET PO (16:49)
--- NOTE | 2022-11-07 05:00 | PC.NURSE ---
Patient instructed on viewing the discharge video Mother & Baby Care, The First Two Weeks . Patient was given the opportunity and encouraged to ask questions. Patient verbalized understanding of information shared and has been given the mother/baby guide for home reference.
[2022-11-07] MEDS: IBUPROFEN 600 MG TABLET PO (05:22)
[2022-11-07 05:39] LABS: Hematocrit 33.1 % (37.0-47.0); Hemoglobin 10.2 g/dL (12.0-15.0)
[2022-11-07] MEDS: metFORMIN HCL 500 MG TABLET 1000 MG PO (07:41)
[2022-11-07] MEDS: MULTIVIT/MIN/PREN/FOL AC/IRON TABLET 1 TAB PO (07:42)
[2022-11-07] MEDS: DOCUSATE SODIUM 100 MG CAPSULE PO (07:42)
[2022-11-07 07:50] VITALS: BP 140/84; PULSE 88; RESP 16; TEMP 36.3; O2SAT 99
--- NOTE | 2022-11-07 07:55 | P.PNOB_ITS ---
OB - PN: Subj Subjective Date/time seen: 11/07/22 07:55 Patient comments: no complaints and pain well controlled baby status: doing well and bottle feeding well [place] feeding status: other (plans to start breast pumping at home. ) Narrative: PPD 1 from . Doing well. Desires DC home today. Denies any issues. No JANE, visual changes, RUQ pain, or increase in edema. OB - PN: Obj Data Labs 11/07/22 05:29 11/05/22 06:45 Labs: Laboratory Results - last 24 hr 11/07/22 05:29 Hgb 10.2 L Hct 33.1 L OB - PN A/P Assessment and Plan (1) (normal spontaneous vaginal delivery): Code(s): O80 - Encounter for full-term uncomplicated delivery Status: Acute (2) induced hypertension: Qualifiers: Trimester: third trimester Qualified Code(s): O13.3 - Gestational [-induced] hypertension without significant proteinuria, third t rimester Code(s): O13.9 - Gestational [-induced] hypertension without significant proteinuria, unspecified trimester Status: Acute Assessment and Plan: No evidence of preeclampsia. Symptoms reviewed with pt. Will check BP q day at home. Parameters given to call office. (3) At risk for ineffective : Code(s): Z91.89 - Other specified personal risk factors, not elsewhere classified Status: Acute Assessment and Plan: Plans to begin pumping at home. Reviewed resources. Plan day: 1 Plan: discharge home Time Spent With Patient Time: Total time spent is greater than 50% in coordination of care (as documented) at patient's floor/unit and/or counseling patient: Review of Systems Review of Systems: All systems reviewed & are unremarkable except as noted in HPI and below Constitutional: Constitutional: Reports no additional constitutional complaints Genitourinary: Comments: Urinating without difficulty. Exam Narrative: Alert and oriented. Mood is pleasant and cooperative. Urinating without diffic ulty. Denies passing any large clots. Perineum with minimal edema. Fundus firm and below umbilicus. Const: General: cooperative, healthy appearing, no acute distress and alert Orientation/consciousness: patient oriented x3 Limitations: no limitations Resp: Effort & Inspection: normal respiratory effort Auscultation: clear to auscultation bilaterally Cardio: Rate: regular rate GI: Inspection: normal to inspection Neuro: General: patient oriented x3 Extrem: General: normal to inspection Psych: Appearance: grossly normal Mental Status: mental status grossly normal Affect: normal affect Thought process: Normal thought process present
[2022-11-08 11:19] VITALS: BP 145/79; PULSE 85; RESP 18; TEMP 37.2; O2SAT 100
== END 2022-11-07 10:31 | disposition home or self-care (01) | DRG 807 ==
LOC: ANHLDR 11-06 01:22 → ANHOB2 11-06 03:22
PROVIDERS: Admitting Provider Obstetrics & Gynecology Gynecology; PCP Family Medicine; Visit Provider Obstetrics & Gynecology Gynecology
DX: O13.4 Gestational [pregnancy-induced] hypertension without significant proteinuria, complicating childbirth (principal); Z37.0 Single live birth; Z3A.39 39 weeks gestation of pregnancy; O70.1 Second degree perineal laceration during delivery; O77.0 Labor and delivery complicated by meconium in amniotic fluid
CPT/HCPCS: 36415; 80053; 84550; 85014; 85018; 85025; 86592; 86703; 86850; 86900; 86901; 88307; A9270; G0432; J2405; J2590; J2795; J7120

== ENCOUNTER → 2023-02-25 15:35 | Outpatient (CLI) | payer OTHER, SELFPAY ==
--- NOTE | ~2023-02-25 | US_ITS ---
Pelvic ultrasound. Clinical History: First trimester , establish dates and viability Technique: Realtime transabdominal and transvaginal scanning of the pelvis was performed. Color flow Doppler and Doppler spectral analysis were performed. Findings: The uterus is anteverted, and contains an intrauterine gestation. pole and yolk sac a re present. [place]-rump length of 4 mm corresponds to an estimated gestational age of 6 weeks 1 day. F etal heart rate is 121 bpm.. The right ovary measures 3.0 x 1.9 x 3.4 cm. No significant right ovarian or adnexal mass is seen. The left ovary measures 3.4 x 2.1 x 2.3 cm. No significant left ovarian or adnexal mass is seen. There is no evidence of free fluid in the cul de sac. Impression: Live intrauterine gestation with estimated gestational age of 6 weeks 1 day. heart rate is 121 bpm. Sonographic ALISSA is 10/20/2023. Reviewed, dictated and finalized at location . [facility] Impression: Live intrauterine gestation with estimated gestational age of 6 weeks 1 day. Fe sho heart rate is 121 bpm. Sonographic ALISSA is 10/20/2023.
== END ==
PROVIDERS: PCP Obstetrics & Gynecology Gynecology; Visit Provider Obstetrics & Gynecology Gynecology
DX: Z36.87 Encounter for antenatal screening for uncertain dates (principal)
CPT/HCPCS: 76817

== ENCOUNTER 2023-05-27 15:41 | Outpatient (CLI) | payer OTHER, SELFPAY ==
--- NOTE | ~2023-05-27 | US_ITS ---
EXAMINATION: US OB /maternal detail DATE: 05/27/2023 16:32 INDICATION: anatomic survey. TECHNIQUE: Real-time ultrasound of the pelvis was performed. COMPARISON: Ultrasound 02/25/2023 FINDINGS: There is a single living fetus in breech presentation. The placenta is posterior and fundal, 8.1 cm from the cervix. heart rate is 150 beats per minute (bpm). The cervical length is 3.0 cm on tra nsabdominal images, which is normal. The amniotic fluid volume is subjectively normal. The following biometric data were obtained: Biparietal diameter (BPD): 4.4 cm; head circumference (HC): 16.6 cm; abdominal circumference (AC): 13 .9 cm; femur length (FL): 2.8 cm. These measurements are concordant. Estimated weight is 270 g +/- 41 g, which correlates with the 39th percentile when 10/20/23 is us ed as estimated date of delivery. As single measurements, these parameters are each equal to the following estimated gestational ages: BPD: 19 weeks 3 days. HC: 19 weeks 2 days. AC: 19 weeks 2 days. FL: 18 weeks 4 days. estimated gestational age based solely on measurements from this exam is 19 weeks 1 days +/- 1 weeks 2 days. The cerebral ventricles, cerebellum, cisterna magna, nuchal fold, lips, and visualized portions of th e spine are normal. The heart is normal. The diaphragm, stomach, kidneys, and bladder are normal. The re are two umbilical arteries to yield a 3-vessel cord. The cord insertion is normal. IMPRESSION: 1. Single living fetus in breech presentation. 2. Estimated weight is 270 g +/- 41 g, which correlates with the 39th percentile when 10/20/23 i s used as estimated date of delivery. This date was set by ultrasound on 02/25/2023. 3. Normal anatomic survey. Reviewed, dictated and finalized at location A. IMPRESSION: 1. Single living fetus in breech presentation. 2. Estimated weight is 270 g +/- 41 g, which correlates with the 39th pe rcentile when 10/20/23 is used as estimated date of delivery. This date was set b y ultrasound on 02/25/2023. 3. Normal anatomic survey.
== END 2023-05-27 15:42 ==
PROVIDERS: PCP Advanced Practice Midwife; Visit Provider Advanced Practice Midwife
DX: Z36.9 Encounter for antenatal screening, unspecified (principal); Z3A.19 19 weeks gestation of pregnancy
CPT/HCPCS: 76805

== ENCOUNTER 2023-07-05 14:02 | Emergency (ER) | payer OTHER, SELFPAY ==
[2023-07-05 14:07] VITALS: BP 148/90; PULSE 102; RESP 15; TEMP 36.4; O2SAT 100
[2023-07-05 16:15] VITALS: BP 138/80; PULSE 86; RESP 16; TEMP 36.7; O2SAT 100
[2023-07-05 16:17] LABS: Appearance Urine Clear (Clear); Bilirubin Urine Negative (Negative); Blood Urine Negative (Negative); Color Urine Yellow (Yellow); Glucose Urine UA Negative (Negative); Ketones Urine Negative (Negative); Leukocyte Esterase Ur Negative LEU/UL (Negative); Nitrate Urine Negative (Negative); Protein Urine Negative (Negative); Specific Grav Ur 1.024 (1.001-1.035); Urobilinogen Urine 0.2 mg/dL (<2.0); pH Urine 5.5 (5.0-9.0)
[2023-07-05 16:23] LABS: Add Urine Microscopic? NO
--- NOTE | 2023-07-05 17:18 | ED_ITS ---
HPI - Back Pain/Injury General Chief Complaint: Back Pain/Injury Stated Complaint: back pain Time Seen by Provider: 07/05/23 16:18 History of Present Illness HPI Narrative: 23-year-old female presenting to the emergency department for evaluation for left-sided lower back and left hip pain. Patient is proximal 25 weeks and does follow-up with Dr. White. patient states she has had worsening lower back pain over the last few days. Patient denies any falls or injuries. P atient denies any vaginal bleeding vaginal discharge. Patient denies any associated numbness or weakness. Patient denies any saddle anesthesia or change in bowel or bladder habits. Patient describes left hip pain that radiates down the left thigh that is worsened with position. Related Data Home Medications Medication Instructions Recorded Confirmed metformin 500 mg tablet 1,000 mg PO BID 05/01/22 01/27/23 ergocalciferol (vitamin D2) 1,000 50,000 unit PO WEEKLY 10/12/22 01/27/23 unit capsule ferrous sulfate 27 mg iron tablet 27 mg PO DAILY 10/12/22 01/27/23 Allergies Allergy/AdvReac Type Severity Reaction Status Date / Time No Known Allergies Allergy Verified 01/25/23 14:51 Review of Systems Review of Systems: All systems reviewed & are unremarkable except as noted in HPI and below PMFSH Past Medical History Medical History (Updated 07/05/23 @ 17:21 by Vikas Hadley MD) Cellulitis of buttock Dietary counseling and surveillance (03/14/17) Encounter for counseling regarding contraception Encounter for incision and drainage procedure History of migraine headaches Intractable chronic cluster headache Migraine without aura and without status migrainosus, not intractable On oral contraceptive pills for non-contraception indication PCOS (polycystic ovarian syndrome) Sacrococcygeal pilonidal cyst with abscess Surgical History Surgical History (Updated 01/27/23 @ 13:59 by Christine Saucedo MD) History of excision of pilonidal cyst Family History Family History Father Diabetes mellitus Heart disease Hypertension High cholesterol Mother Diabetes mellitus High cholesterol Hypertension Social History Social History (Updated 01/25/23 @ 14:57 by Barbara Solomon) Social History: Smoking status: Never smoker Second hand tobacco smoke exposure: No Alcohol intake: never Substance use: never Substance use type: does not use Lack of Transportation: No Lack of Food: Never True Current Housing: I Have Housing Concerned About Future Housing: No Difficulty Paying Gas/Electric Bills: No Difficulty Paying for Meds: No Currently Unemployed: No Education: High School Diploma/GED Difficulty w/ Childcare or Family Care: No Living arrangements: with family Occupation/Education: occupation Additional occupation/education comments: [employer] Gender identity (if verbalized by the patient): Female Sexual Orientation (if Verbalized by the Patient): Straight or Heterosexual Spiritual care concerns: No Exam Narrative: APPEARANCE: Well appearing, no pain, no distress, well-nourished. HEAD: normocephalic, atraumatic. EYES: PERRLA/EOMI, conjunctivae clear. NECK: Supple. No adenopathy, no masses. RESPIRATORY: Airway patent, respirations nonlabored. Clear to auscultation bilaterally, no rales, rhonchi, wheezing. CARDIOVASCULAR: Regular rate and rhythm without murmurs rubs or gallops. ABDOMINAL: Soft, nontender, nondistended, normal bowel sounds, gravid abdomen MUSCULOSKELETAL: Moves all extremities. no midline back tenderness to palpation some left buttock tenderness to palpation, but negative leg test NEURO: Alert. Cranial nerves II through XII intact. gross intactly SKIN: Warm, dry. Normal Color Course Vital Signs Vital signs: Vital Signs Temperature 97.6 F 07/05/23 14:07 Pulse Rate 102 H 07/05/23 14:07 Respiratory Rate 15 07/05/23 14:07 Blood Pressure 148/90 H 07/05/23 14:07 Pulse Oximetry 100 07/05/23 14:07 Oxygen Delivery Room Air 07/05/23 14:07 Temperature 98.2 F 07/05/23 17:33 Pulse Rate 86 07/05/23 17:33 Respiratory Rate 16 07/05/23 17:33 Blood Pressure 136/88 07/05/23 17:33 Pulse Oximetry 100 07/05/23 17:33 Oxygen Delivery Room Air 07/05/23 14:07 MDM - Back Pain/Injury MDM Narrative Medical decision making narrative: 23-year-old female presenting to the emergency department for evaluation of lower back pain that radiates down her left leg. UA was negative for infection and for hematuria. Patient was advised to take Tylenol for pain control. Patient was also encouraged close follow-up with OB Gyne. Differential Diagnosis Differential diagnosis: Likely lumbar radiculopathy, sciatica, strain of lumbar region, renal colic and other Lab Data Attestation: I reviewed the patient's lab results. Labs: Lab Results 07/05/23 Range/Units 16:11 Urine Color Yellow (Yellow) Urine Appearance Clear (Clear) Urine pH 5.5 (5.0-9.0) Ur Specific [place] 1.024 (1.001-1.035) Urine Protein Negative (Negative) mg/dL Urine Glucose (UA) Negative (Negative) mg/dL Urine Ketones Negative (Negative) mg/dL Ur Blood (Man) Negative (Negative) Urine Nitrate Negative (Negative) Urine Bilirubin Negative (Negative) Urine Urobilinogen 0.2 (<2.0) mg/dL Leukocyte Esterase Rfl Negative (Negative) MICHI/UL Discharge Plan Discharge Clinical Impression: Sciatica Patient Disposition: Home, Self-Care Condition: Stable Instructions: Antibiotic Form, Sciatica (ED) Additional Instructions: Tylenol for pain control. Gentle stretching directed for sciatica. Have close follow-up with OB Gyne. If you have any worsening symptoms then please call or return to the emergency department. Prescriptions: No Action metformin 500 mg tablet 1,000 mg PO BID ergocalciferol (vitamin D2) 1,000 unit Capsule 50,000 unit PO WEEKLY Rx Instructions: Takes every Saturday ferrous sulfate 27 mg iron Tablet 27 mg PO DAILY Follow-up/Referrals: Angle Conklin, SAMMIE [Primary Care Provider] -
[2023-07-05 17:33] VITALS: BP 136/88; PULSE 86; RESP 16; TEMP 36.8; O2SAT 100
== END 2023-07-05 17:35 | disposition home or self-care (01) ==
PROVIDERS: Family Medicine; Emergency Provider Emergency Medicine; PCP Advanced Practice Midwife
DX: O99.891 Other specified diseases and conditions complicating pregnancy (principal); M54.42 Lumbago with sciatica, left side; O99.282 Endocrine, nutritional and metabolic diseases complicating pregnancy, second trimester; E28.2 Polycystic ovarian syndrome; Z79.84 Long term (current) use of oral hypoglycemic drugs; Z3A.25 25 weeks gestation of pregnancy
CPT/HCPCS: 81003; 99283

== ENCOUNTER 2023-10-08 16:15 | Outpatient (CLI) | payer OTHER, MEDICAID, SELFPAY ==
[2023-10-08 16:50] LABS: Hematocrit 37.6 % (37.0-47.0); Hemoglobin 11.8 g/dL (12.0-15.0); Mean Corpuscular HGB Conc 31.4 g/dl (32-36); Mean Corpuscular Hemoglobin 27.9 pg (26-34); Mean Corpuscular Volume 88.9 fl (80-100); Mean Platelet Volume 10.6 fl (7.4-10.4); Platelet Count Result 256 k/mm3 (150-375); Red Blood Count 4.23 M/mm3 (4.2-5.4); Red Cell Distribution Width 14.4 % (11.5-14.5)
[2023-10-08 17:03] LABS: Alanine Aminotransferase 13 U/L (6-35); Albumin Level 3.8 g/dL (3.5-5.1); Alkaline Phosphatase 118 U/L (38-126); Anion Gap 8 mmol/L (4-12); Aspartate Amino Transferase 20 U/L (14-36); Bilirubin,Total 0.4 mg/dL (0.2-1.3); Blood Urea Nitrogen 6 mg/dL (7-17); Calcium 8.7 mg/dL (8.4-10.2); Carbon Dioxide 26 mmol/L (22-30); Chloride 101 mmol/L (98-107); Estimated Glomerular Filt Rate > 60; Glucose 79 mg/dL (65-110); Potassium 3.8 mmol/L (3.4-5.0); Sodium 135 mmol/L (137-145); Uric Acid 3.9 mg/dL (2.5-7.5)
== END 2023-10-08 16:16 | disposition home or self-care (01) ==
LOC: ANHLAB 16:17
PROVIDERS: PCP Family Medicine; Visit Provider Advanced Practice Midwife
DX: O13.3 Gestational [pregnancy-induced] hypertension without significant proteinuria, third trimester (principal); Z3A.00 Weeks of gestation of pregnancy not specified
CPT/HCPCS: 36415; 80053; 81050; 84156; 84550; 85027

== ENCOUNTER 2023-10-09 16:39 | Outpatient (CLI) | payer OTHER, MEDICAID, SELFPAY ==
[2023-10-09 17:31] LABS: Total Volume 24 Hour Urine 1300 ml
[2023-10-09 17:56] LABS: Total Protein Urine Random < 5 mg/dL
[2023-10-09 17:57] LABS: Total Protein Urine 24 Hr < 65 mg/24hr (28-141)
== END 2023-10-09 16:40 | disposition home or self-care (01) ==
LOC: ANHLAB 16:42
PROVIDERS: PCP Family Medicine; Visit Provider Advanced Practice Midwife
DX: O13.3 Gestational [pregnancy-induced] hypertension without significant proteinuria, third trimester (principal)
CPT/HCPCS: 81050; 84156

== ENCOUNTER 2023-10-17 06:03 | Inpatient (IN) | payer OTHER, MEDICAID, SELFPAY ==
[2023-10-17] VITALS (163 sets, daily range): BP systolic 87–155; BP diastolic 29–98; PULSE 58–143; TEMP 36.2–36.9; O2SAT 98–100; BMI 42.3
--- NOTE | 2023-10-17 06:59 | LDADM ---
This patient, Pennie Guerin, was admitted to Labor/Delivery/Recovery 107 on 10/17/23 at 06:03. Plans for labor, pain management and were discussed with patient. Patient/family oriented to hospital policies and general routines including ID bracelet, bed and alarms, visiting hours, pain management, procedures, bathroom and other care routines, personal items, smoking policy, room service/diet and guest tray routines, infant security routines, and visiting hours. Patient/Family are encouraged to report perceived risks to care and to ask questions if they do not understand what they are told or what they should do. See OBIX for further documentation.
[2023-10-17 07:12] LABS: Basophils Percent Auto 0.4 % (0.2-1.2); Eosinophils Absolute Auto 0.2 K/mm3 (0-0.3); Eosinophils Percent Auto 1.9 % (0-4.4); Hematocrit 35.8 % (37.0-47.0); Hemoglobin 11.4 g/dL (12.0-15.0); Immature Granulocyte Absolute 0.06 K/mm3 (0.00-0.031); Immature Granulocyte Percent A 0.5 % (0-0.5); Lymphocytes Absolute Auto 2.53 K/mm3 (0.9-3.2); Lymphocytes Percent Auto 22.3 % (18.3-44.2); Mean Corpuscular HGB Conc 31.8 g/dl (32-36); Mean Corpuscular Hemoglobin 27.9 pg (26-34); Mean Corpuscular Volume 87.5 fl (80-100); Mean Platelet Volume 10.5 fl (7.4-10.4); Monocytes Absolute Auto 0.4 K/mm3 (0.1-0.6); Monocytes Percent Auto 3.4 % (2.6-8.5); Neutrophils Absolute Auto 8.1 K/mm3 (1.3-6.7); Neutrophils Percent Auto 71.5 % (45.5-73.1); Platelet Count Result 233 k/mm3 (150-375); Red Blood Count 4.09 M/mm3 (4.2-5.4); Red Cell Distribution Width 14.4 % (11.5-14.5); White Blood Count 11.4 K/mm3 (4.5-10.0)
[2023-10-17] MEDS: OXYTOCIN 30 UNITS/NS 500 ML 30 UNITS/500 ML BAG IV CONT (07:50)
[2023-10-17] MEDS: LACTATED RINGERS 1,000 ML 125 ML IV CONT ×3 (07:50→23:54)
[2023-10-17 08:02] LABS: HIV 1/2 Ab P24 Ag Result Negative (Negative)
--- NOTE | 2023-10-17 08:45 | WPDOBADMIT ---
Obstetrics - Admit Note Admission Note: record reviewed. No pertinent additions to the history and/or any subsequent changes in the physical findings that are not consistent with the expected course of the were found. Additions to the history and/or subsequent changes in the physical findings follow. None.
--- NOTE | 2023-10-17 08:45 | PM.OBPNLAB ---
Pain Control Date/time seen: 10/17/23 08:35 Pain control: tolerating well Pelvic Exam Dilation (cm): 1 Effacement (%): 50 station: -3 Amniotic membrane status: Intact Comments: head applied to cervix. Contractions Monitor mode: External Contraction pattern: Irregular Contraction intensity: Mild Status status: Category ll Comments: Reassured by moderate variability and accelerations. Assessment and Plan Pitocin rate (mU/min): 2 Assessment: induction ongoing Comments: CNM to bedside. Plan of care discussed. Option for ROM discussed and pt agreeable. Attempted amniotomy. No fluid return. Will observe for leaking of water and attempt at a later time if necessary. Plan to increase pitocin as needed to achieve adequate contraction pattern. Anticipate vaginal .
--- NOTE | 2023-10-17 09:24 | PM.OBPNLAB ---
Pain Control Date/time seen: 10/17/23 09:22 Assessment and Plan Comments: CNM to bedside. Pt denies feeling any leaking. Ctx still irregular and not consistent. Plan to increase pitocin as needed to achieve adequate pattern. Can attempt ROM when cervix more favorable.
[2023-10-17 10:33] LABS: Rapid Plasma Reagin Non-Reactive (NonReactive)
[2023-10-17 11:49] LABS: OBXCEM ROM Plus Positive
--- NOTE | 2023-10-17 14:38 | PM.OBPNLAB ---
Pain Control Date/time seen: 10/17/23 14:38 Pain control: tolerating well and epidural Pelvic Exam Amniotic membrane status: Ruptured Comments: 4cm per RN last exam Contractions Monitor mode: Internal Contraction frequency: 3 (2.5-4) Contraction duration: 60 (60-80) Contraction pattern: Regular Status status: Category ll Assessment and Plan Assessment: induction ongoing Comments: Sign off given to Dr. White
--- NOTE | 2023-10-17 17:08 | WPDANESEPP ---
Anes - Eval Pre Procedure Procedure: Labor Epidural Date/Time: 10/17/23 17:08 Surgeon: Cindy Preop Diagnosis: Labor Pain Pre Op Diagnosis: IOL Patient Data Age: 23 Gender: F Height: 1.75 m Weight: 130 kg Last Vital Signs Temp 36.6 C 10/17/23 14:30 Pulse 75 10/17/23 17:07 BP 117/64 10/17/23 17:07 Pulse Ox 100 10/17/23 17:05 O2 Del Method Room Air 10/17/23 06:54 Allergies Allergy/AdvReac Type Severity Reaction Status Date / Time No Known Allergies Allergy Verified 10/17/23 07:38 Home Medications Medication Instructions Recorded Confirmed Type metformin 500 mg tablet 1,000 mg PO BID 05/01/22 10/17/23 History ergocalciferol (vitamin D2) 1,000 50,000 unit PO WEEKLY 10/12/22 10/17/23 History unit capsule ferrous sulfate 27 mg iron tablet 27 mg PO DAILY 10/12/22 10/17/23 History Laboratory Tests 10/17/23 10/17/23 07:07 11:25 WBC 11.4 H K/mm3 (4.5-10.0) RBC 4.09 L M/mm3 (4.2-5.4) Hgb 11.4 L g/dL (12.0-15.0) Hct 35.8 L % (37.0-47.0) MCV 87.5 fl (80-100) MCH 27.9 pg (26-34) MCHC 31.8 L g/dl (32-36) RDW 14.4 % (11.5-14.5) Plt Count 233 k/mm3 (150-375) MPV 10.5 H fl (7.4-10.4) Immature Gran % (Auto) 0.5 % (0-0.5) Neut % (Auto) 71.5 % (45.5-73.1) Lymph % (Auto) 22.3 % (18.3-44.2) [place] % (Auto) 3.4 % (2.6-8.5) Eos % (Auto) 1.9 % (0-4.4) Baso % (Auto) 0.4 % (0.2-1.2) Lymph # (Auto) 2.53 K/mm3 (0.9-3.2) [place] # (Auto) 0.4 K/mm3 (0.1-0.6) Eos # (Auto) 0.2 K/mm3 (0-0.3) Baso # (Auto) 0.0 K/mm3 (0.0-0.1) Abs Immat Gran (auto) 0.06 H K/mm3 (0.00-0.031) Absolute Neuts (auto) 8.1 H K/mm3 (1.3-6.7) Absolute Nucleated RBC 0.000 K/mm3 (0.0-0.012) Nucleated RBC % 0.0 % (0.0-0.2) Membranes Rupture Rom plus positive Membranes Rup Com Yes RPR Non-reactive (NonReactive) HIV 1&2 Ab/P24 Ag 4thGn Negative (Negative) Blood Type O Positive Antibody Screen Negative : gestational age (ALISSA 10/20/23, ) Patient hx anesthesia problems: none Family hx anesthesia problems: none Results Review: All pre-operative results and documents have been reviewed as part of the pre-operative evaluation. [facility] Past Medical History Medical History Cellulitis of buttock Dietary counseling and surveillance (03/14/17) Encounter for counseling regarding contraception Encounter for incision and drainage procedure History of migraine headaches Intractable chronic cluster headache Migraine without aura and without status migrainosus, not intractable On oral contraceptive pills for non-contraception indication PCOS (polycystic ovarian syndrome) Sacrococcygeal pilonidal cyst with abscess Surgical History Surgical History History of excision of pilonidal cyst Family History Family History Father Diabetes mellitus Heart disease Hypertension High cholesterol Mother Diabetes mellitus High cholesterol Hypertension Social History Social History Social History: Smoking status: Never smoker Second hand tobacco smoke exposure: No Alcohol intake: never Substance use: former Substance use type: does not use Do You Feel Safe in your Home?: Yes Lack of Transportation: No Lack of Food: Never True Current Housing: I Have Housing Concerned About Future Housing: No Difficulty Paying Gas/Electric Bills: No Difficulty Paying for Meds: No Currently Unemployed: No Education: Associate Degree Difficulty w/ Childcare or Family Care: No Living arrangements: with family Occup
[2023-10-17] MEDS: ONDANSETRON INJ 4 MG/2 ML VIAL IV PUSH (19:56)
[2023-10-18] VITALS (81 sets, daily range): BP systolic 72–140; BP diastolic 39–87; PULSE 59–130; RESP 12–18; TEMP 36.6–37.4; O2SAT 96–100
[2023-10-18] MEDS: SODIUM CHLORIDE 0.9% IV 300 ML 600 ML I-UTERINE (01:08)
[2023-10-18] MEDS: METHYLERGONOVINE MALEATE 0.2 MG/ML VIAL IM (02:09)
[2023-10-18] MEDS: miSOPROStol 200 MCG TABLET 1000 MCG RECTAL (02:10)
[2023-10-18] MEDS: OXYTOCIN 30 UNITS/NS 500 ML 30 UNITS/500 ML BAG 999 UNITS IV CONT (02:10)
--- NOTE | 2023-10-18 02:37 | P.PCNOB_ITS ---
OB - Vaginal Delivery Note Procedure Delivery date: 10/18/23 Induction method: Per Pitocin Protocol Delivery monitor: Internal FHT and Internal Uterine Route of delivery: Laceration Description: Superficial (midline) Delivery repair: vicryl (3-0) Specimen: Yes (placenta) Quantitative Blood Loss (ml): 2,000 Anesthesia type: Epidural Disposition: Floor Complications: Other complications (pp hemorrhage) [place] Baby Date of : 10/18/23 Gestational Age by Date: 39 (39 5/7) gender: Female Weight (pounds): 7 presentation: vertex position: Right Occiput Anterior Placenta delivery description: Expressed (Majority of placenta delivered spontaneously), Manual Removal ( the last portion the placenta densely adherent and delivered manually) and Other ( approximately 6cm size piece of placenta delivered separately manual) Cord Vessel Description: 3 Vessels, Nuchal Cord ( x2), Delayed Cord Clamping, Around Extremity ( around both legs) and Other ( minimal coiling and minimal Hutchinson's jelly) score one minute: 8 score five minutes: 9 Narrative: As I was drawing cord blood and cord gases, there was a small gush of blood therefore Pitocin was begun. A small tug on the umbilical cord delivered the majority of the placenta but did not fully deliver. Manual exploration revealed approximately 6cm size densely adherent that was manually removed. The placenta was then put in the basin. The uterus was explored and another approximately 6cm size piece of separate placenta was removed. The uterus was again explored and a small amount of membranes are removed. Due to brisk bleeding, the patient was given Methergine and 1000 Cytotec. A team OB was called. The Carlene device is opened and placed did not result in suctioning blood into the tubing at all. The device was removed and the inner portion of the Carlene appeared to have small clotting. A 2nd Carlene device was requested. While waiting for the device, the uterus was again explored and no abnormalities noted. The horseshoe curette was used to sharply curette the endometrium with no additional membranes or tissue obtained. All clots were cleared from the uterus again and the 2nd Katherine placed. This time good suction and blood in the tubing was noted. After observing for [id number] no further active bleeding was noted vaginally and the tubing had no additional blood noted. The patient was cleaned up and observed for an additional 2minutes. No additional bleeding was noted. I just checked on the patient and again no additional bleeding noted vaginally. Will leave the device in and reassess at morning rounds
[2023-10-18] MEDS: OXYTOCIN 30 UNITS/NS 500 ML 30 UNITS/500 ML BAG 125 UNITS IV CONT (02:44)
--- NOTE | 2023-10-18 02:56 | PM.OBDSVD ---
DS: Admitting Diagnosis Discharge Date 10/19/23 <Joe Kaba MD - Last Filed: 10/19/23 06:36> Admitting Diagnosis IUP 39 4/7 wks for MIL <Polly White MD - Last Filed: 10/21/23 08:40> DS: Discharge Diagnosis Discharge Diagnosis (1) (normal spontaneous vaginal delivery): Code(s): O80 - Encounter for full-term uncomplicated delivery <Polly White MD - Last Filed: 10/21/23 08:40> Status: Acute <Polly White MD - Last Filed: 10/21/23 08:40> (2) hemorrhage: Code(s): O72.1 - Other immediate hemorrhage <Polly White MD - Last Filed: 10/21/23 08:40> Status: Acute <Polly White MD - Last Filed: 10/21/23 08:40> OB - DS: Summary OB Procedures : Ultrasound <Polly White MD - Last Filed: 10/21/23 08:40> OB Procedures Intrapartum: Spontaneous Vag Delivery, Uterine exploration, Curettage and Retained placenta <Polly White MD - Last Filed: 10/21/23 08:40> OB Procedures: : Antibiotics (x 1 dose Ancef) <Polly White MD - Last Filed: 10/21/23 08:40> Peripartum Data Infant Delivery Method: Natural Vaginal <Polly White MD - Last Filed: 10/21/23 08:40> Laceration Description: Superficial (midline) <Polly White MD - Last Filed: 10/21/23 08:40> complications: uterine atony ( hemorrhage-methergine, cytotec, Carlene x 7 hours) and retained placenta <Polly White MD - Last Filed: 10/21/23 08:40> Status at Discharge Functional status at discharge: independent ambulation <Polly White MD - Last Filed: 10/21/23 08:40> Overall status at discharge: patient is progressing back to baseline <Polly Whiet MD - Last Filed: 10/21/23 08:40> Time Spent with Patient Time attestation: Total time spent providing and/or coordinating discharge services: <Polly White MD - Last Filed: 10/21/23 08:40> DS: Data Data Completed and Pending Labs on day of discharge: Labs from last 24 hours 10/17/23 10/17/23 11:25 07:07 WBC 11.4 H RBC 4.09 L Hgb 11.4 L Hct 35.8 L MCV 87.5 MCH 27.9 MCHC 31.8 L RDW 14.4 Plt Count 233 MPV 10.5 H Immature Gran % (Auto) 0.5 Neut % (Auto) 71.5 Lymph % (Auto) 22.3 [place] % (Auto) 3.4 Eos % (Auto) 1.9 Baso % (Auto) 0.4 Lymph # (Auto) 2.53 [place] # (Auto) 0.4 Eos # (Auto) 0.2 Baso # (Auto) 0.0 Abs Immat Gran (auto) 0.06 H Absolute Neuts (auto) 8.1 H Absolute Nucleated RBC 0.000 Nucleated RBC % 0.0 Membranes Rupture Rom plus positive Membranes Rup Com Yes RPR Non-reactive HIV 1&2 Ab/P24 Ag 4thGn Negative Blood Type O Positive Antibody Screen Negative <oPlly White MD - Last Filed: 10/21/23 08:40> Discharge Plan Discharge Attending physician on discharge: Polly White <Polly White MD - Last Filed: 10/21/23 08:40> Polly White <Joe Kaba MD - Last Filed: 10/19/23 06:36> Discharging Clinician: Joe Jovel <Polly White MD - Last Filed: 10/21/23 08:40> Joe Jovel <Joe Kaba MD - Last Filed: 10/19/23 06:36> Anticipated Discharge Date/Time: 10/20/23 09:48 <Polly White MD - Last Filed: 10/21/23 08:40> Patient Disposition: Home, Self-Care <Polly White MD - Last Filed: 10/21/23 08:40> Activity: may shower and pelvic rest <Polly White MD - Last Filed: 10/21/23 08:40> may shower and pelvic rest <Joe Kaba MD - Last Filed: 10/19/23 06:36> Diet: regular <Polly White MD - Last Filed: 10/21/23 08:40> regular <Joe Kaba MD - Last Filed: 10/19/23 06:36> Discharge Instructions: Education: Mom and Baby Guide Given t
[2023-10-18 03:03] LABS: Basophils Absolute Auto 0.1 K/mm3 (0.0-0.1); Basophils Percent Auto 0.4 % (0.2-1.2); Eosinophils Absolute Auto 0.1 K/mm3 (0-0.3); Eosinophils Percent Auto 0.6 % (0-4.4); Hematocrit 36.2 % (37.0-47.0); Hemoglobin 11.4 g/dL (12.0-15.0); Immature Granulocyte Absolute 0.08 K/mm3 (0.00-0.031); Immature Granulocyte Percent A 0.5 % (0-0.5); Lymphocytes Absolute Auto 2.42 K/mm3 (0.9-3.2); Lymphocytes Percent Auto 16.3 % (18.3-44.2); Mean Corpuscular HGB Conc 31.5 g/dl (32-36); Mean Corpuscular Hemoglobin 28.2 pg (26-34); Mean Corpuscular Volume 89.6 fl (80-100); Monocytes Absolute Auto 0.6 K/mm3 (0.1-0.6); Monocytes Percent Auto 4.3 % (2.6-8.5); Neutrophils Absolute Auto 11.5 K/mm3 (1.3-6.7); Neutrophils Percent Auto 77.9 % (45.5-73.1); Platelet Count Result 224 k/mm3 (150-375); Red Blood Count 4.04 M/mm3 (4.2-5.4); Red Cell Distribution Width 14.4 % (11.5-14.5); White Blood Count 14.8 K/mm3 (4.5-10.0)
[2023-10-18] MEDS: ceFAZolin 3 GM/D5W 100 ML 100 ML IVPB (03:12)
[2023-10-18 03:14] LABS: Alanine Aminotransferase 12 U/L (6-35); Albumin Level 3.3 g/dL (3.5-5.1); Alkaline Phosphatase 126 U/L (38-126); Anion Gap 9 mmol/L (4-12); Aspartate Amino Transferase 19 U/L (14-36); Bilirubin,Total 0.5 mg/dL (0.2-1.3); Blood Urea Nitrogen 5 mg/dL (7-17); Calcium 8.6 mg/dL (8.4-10.2); Carbon Dioxide 23 mmol/L (22-30); Chloride 102 mmol/L (98-107); Estimated CRCL calculation 208 ml/min; Estimated Glomerular Filt Rate > 60; Glucose 94 mg/dL (65-110); Potassium 3.8 mmol/L (3.4-5.0); Sodium 134 mmol/L (137-145)
[2023-10-18 04:30] LABS: Prothrombin Time 13.3 Seconds (11.1-14.7)
[2023-10-18 04:31] LABS: Fibrinogen 607 mg/dl (215-510); Partial Thromboplastin Time 28.4 Seconds (22.3-36.8)
[2023-10-18 04:42] LABS: D Dimer 5.81 ug/mL (<0.48)
--- NOTE | 2023-10-18 05:27 | OBPPTRN ---
Patient transferred to post room #286 via w/c. Support person present. Oriented to unit, room, information board, rooming in, admission packet and security measures. Patient verbalizes understanding.
[2023-10-18] MEDS: IBUPROFEN 600 MG TABLET PO ×2 (07:49→17:25)
[2023-10-18] MEDS: ACETAMINOPHEN 325 MG TABLET 650 MG PO ×2 (07:49→17:25)
[2023-10-18] MEDS: DOCUSATE SODIUM 100 MG CAPSULE PO ×2 (07:49→17:26)
--- NOTE | 2023-10-18 09:45 | PM.OBPNVD ---
OB - PN: Subj Subjective Date/time seen: 10/18/23 09:45 Patient comments: no complaints and pain well controlled baby status: doing well OB - PN: Obj Data Labs 10/18/23 02:58 10/18/23 02:58 Labs: Laboratory Results - last 24 hr 10/17/23 10/17/23 10/18/23 07:07 11:25 02:58 WBC 14.8 H RBC 4.04 L Hgb 11.4 L Hct 36.2 L MCV 89.6 MCH 28.2 MCHC 31.5 L RDW 14.4 Plt Count 224 MPV 11.0 H Immature Gran % (Auto) 0.5 Neut % (Auto) 77.9 H Lymph % (Auto) 16.3 L [place] % (Auto) 4.3 Eos % (Auto) 0.6 Baso % (Auto) 0.4 Lymph # (Auto) 2.42 [place] # (Auto) 0.6 Eos # (Auto) 0.1 Baso # (Auto) 0.1 Abs Immat Gran (auto) 0.08 H Absolute Neuts (auto) 11.5 H Absolute Nucleated RBC 0.000 Nucleated RBC % 0.0 PT INR APTT Fibrinogen D-Dimer Sodium 134 L Potassium 3.8 Chloride 102 Carbon Dioxide 23 Anion Gap 9 BUN 5 L Creatinine 0.50 L Estim Creat Clear Calc 208 Estimated GFR > 60 Glucose 94 Calcium 8.6 Total Bilirubin 0.5 AST 19 ALT 12 Alkaline Phosphatase 126 Total Protein 6.0 L Albumin 3.3 L Membranes Rupture Rom plus positive Membranes Rup Com Yes RPR Non-reactive 10/18/23 04:16 WBC RBC Hgb Hct MCV MCH MCHC RDW Plt Count MPV Immature Gran % (Auto) Neut % (Auto) Lymph % (Auto) [place] % (Auto) Eos % (Auto) Baso % (Auto) Lymph # (Auto) [place] # (Auto) Eos # (Auto) Baso # (Auto) Abs Immat Gran (auto) Absolute Neuts (auto) Absolute Nucleated RBC Nucleated RBC % PT 13.3 INR 1.0 APTT 28.4 Fibrinogen 607 H D-Dimer 5.81 H Sodium Potassium Chloride Carbon Dioxide Anion Gap BUN Creatinine Estim Creat Clear Calc Estimated GFR Glucose Calcium Total Bilirubin AST ALT Alkaline Phosphatase Total Protein Albumin Membranes Rupture Membranes Rup Com RPR OB - PN A/P Assessment and Plan (1) hemorrhage: Code(s): O72.1 - Other immediate hemorrhage Status: Acute Assessment and Plan: Carlene removed. H/H at 11 am. DC saavedra in 30 min if remains stable and ambulate. Plan day: 1 Plan: routine care Time Spent With Patient Time: Total time spent is greater than 50% in coordination of care (as documented) at patient's floor/unit and/or counseling patient: Exam Narrative: Carlene deflated and taken off suction at 0905. Just rechecked and uterus firm at U with minimal bleeding. Carlene removed.
[2023-10-18 11:27] LABS: Hematocrit 29.4 % (37.0-47.0); Hemoglobin 9.1 g/dL (12.0-15.0)
--- NOTE | 2023-10-18 16:54 | PC.NURSE ---
1320-Removed patient's epidural; catheter removed intact; patient tolerated well.
[2023-10-18] MEDS: POLYSACCHARIDE IRON COMPLEX 150 MG CAPSULE PO (17:24)
[2023-10-19 04:11] VITALS: BP 114/67
[2023-10-19 06:05] LABS: Hematocrit 25.6 % (37.0-47.0); Hemoglobin 7.9 g/dL (12.0-15.0)
--- NOTE | 2023-10-19 06:36 | PM.OBPNVD ---
OB - PN: Subj Subjective Date/time seen: 10/19/23 06:36 Patient comments: no complaints and pain well controlled baby status: doing well and nursing well OB - PN: Obj Data Labs 10/19/23 04:37 10/18/23 02:58 Labs: Laboratory Results - last 24 hr 10/18/23 10/19/23 11:14 04:37 Hgb 9.1 L 7.9 L Hct 29.4 L 25.6 L OB - PN A/P Plan day: 1 Plan: routine care, discharge home and follow up 6 weeks Comments: continue iron Time Spent With Patient Time: Total time spent is greater than 50% in coordination of care (as documented) at patient's floor/unit and/or counseling patient: Time with patient: less than 15 minutes Exam Const: General: cooperative, healthy appearing and comfortable Nutritional Appearance: average body habitus Orientation/consciousness: oriented to person, oriented to place and oriented to time Resp: Effort & Inspection: normal respiratory effort Cardio: Rate: regular rate Rhythm: regular rhythm Heart sounds: S1 normal heart sound present and S2 normal heart sound present GI: Inspection: normal to inspection
[2023-10-19 08:45] VITALS: BP 126/79; PULSE 90; RESP 18; TEMP 36.7
[2023-10-19] MEDS: DOCUSATE SODIUM 100 MG CAPSULE PO (09:00)
[2023-10-19] MEDS: POLYSACCHARIDE IRON COMPLEX 150 MG CAPSULE PO (09:00)
--- NOTE | 2023-10-19 11:27 | PC.NURSE ---
Wrote on pt's discharge paperwork to continue metformin as she was taking it before for PCOS. Pt states understanding.
[2023-10-21 08:10] VITALS: BP 130/77; PULSE 80; RESP 18; TEMP 37.1; O2SAT 100
== END 2023-10-19 11:47 | disposition home or self-care (01) | DRG 806 ==
LOC: ANHOB2 10-19 10:56 → ANHLDR 10-21 13:34 → ANHOB2 10-21 13:34
PROVIDERS: Admitting Provider Obstetrics & Gynecology Gynecology; Visit Provider Obstetrics & Gynecology
DX: O69.82X0 Labor and delivery complicated by other cord entanglement, without compression, not applicable or unspecified (principal); O72.1 Other immediate postpartum hemorrhage; Z37.0 Single live birth; O70.0 First degree perineal laceration during delivery; O67.8 Other intrapartum hemorrhage; Z3A.39 39 weeks gestation of pregnancy
CPT/HCPCS: 36415; 80053; 84112; 85014; 85018; 85025; 85380; 85384; 85610; 85730; 86592; 86703; 86850; 86900; 86901; 88307; A9270; G0432; J0690; J2210; J2405; J2590; J2795; J7030; J7120

== ENCOUNTER 2024-04-10 08:03 | Outpatient (CLI) | payer OTHER, MEDICAID, SELFPAY ==
[2024-04-10 09:48] LABS: Hematocrit 39.1 % (37.0-47.0); Hemoglobin 12.1 g/dL (12.0-15.0)
== END 2024-04-10 08:04 | disposition home or self-care (01) ==
LOC: ANHSURGERY 08:08
PROVIDERS: Anesthesiology; PCP Physician Assistant; Visit Provider Obstetrics & Gynecology Gynecology
DX: Z01.818 Encounter for other preprocedural examination (principal); D64.9 Anemia, unspecified
CPT/HCPCS: 36415; 85014; 85018

== ENCOUNTER 2025-03-12 09:01 | Emergency (ER) | payer OTHER, BC, SELFPAY ==
[2025-03-12 09:19] VITALS: BP 136/80; PULSE 107; RESP 18; TEMP 36.6; O2SAT 98
--- NOTE | 2025-03-12 09:27 | ED_ITS ---
HPI - URI/Sore Throat General Chief Complaint: Upper Respiratory Infection Stated Complaint: Sinus Source: patient Mode of arrival: ambulatory Limitations: no limitations History of Present Illness HPI Narrative: this is a 24-year-old female patient who presents to the urgent care with complaints of fever, body aches, cough, sinus congestion for 2 and half days. Patient states that she has been taking the [id number] cough and cold medication with relief of symptoms. She denies any other chest pain, shortness a breath, headache or dizziness. No nausea, vomiting or diarrhea. MD elicited complaint: fever, cough and nasal congestion Onset (ago): day(s) (2) Consistency: constant Exacerbating factors: nothing Relieving factors: OTC cold medicine Context: sick contacts Associated symptoms: rhinorrhea and nasal congestion Treatments prior to arrival: cold medicine Related Data Allergies Allergy/AdvReac Type Severity Reaction Status Date / Time No Known Allergies Allergy Verified 03/12/25 09:06 [facility] Past Medical History Medical History Anxiety and depression Spontaneous X2 (normal spontaneous vaginal delivery) X3 Intractable chronic cluster headache Migraine without aura and without status migrainosus, not intractable PCOS (polycystic ovarian syndrome) Surgical History Surgical History Status post tonsillectomy History of excision of pilonidal cyst Family History Family History Father Diabetes mellitus Heart disease Hypertension High cholesterol Mother Diabetes mellitus High cholesterol Hypertension Social History Social History Social History: Smoking status: Never smoker Second hand tobacco smoke exposure: No Alcohol intake: never Substance use: former Substance use type: does not use Lack of Transportation: No Lack of Food: Never True Current Housing: I Have Housing Concerned About Future Housing: No Difficulty Paying Gas/Electric Bills: No Difficulty Paying for Meds: No Currently Unemployed: No Education: Associate Degree Difficulty w/ Childcare or Family Care: No Living arrangements: with family Occupation/Education: occupation 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 Gender identity (if verbalized by the patient): Female Sexual Orientation (if Verbalized by the Patient): Straight or Heterosexual Spiritual care concerns: No Exam Const: General: ill appearing Nutritional Appearance: well nourished Orientation/consciousness: patient oriented x3 Limitations: no limitations HENMT: Head: normal to inspection Ears: external ears normal Face/Nose/Sinus: Nasal discharge present mucoid Face and sinus: sinus tenderness frontal and maxillary Mouth: Yes Normal oral and palatal mucosa present Teeth and gingiva: dentition normal Throat: posterior oropharynx normal Eyes: Conjunctivae: conjunctivae normal Pupils: Equal, round and reactive pupils present EOM: EOMs intact bilaterally Neck: Neck: normal visual inspection and no lymphadenopathy Chest: Chest palpation & inspection: normal inspection of the chest Resp: Effort & Inspection: normal respiratory effort Auscultation: clear to auscultation bilaterally Cardio: Rate: regular rate Rhythm: regular rhythm GI: GI Palp: Yes Soft to palpation Auscultation: normal bowel sounds Back/Spine/Pelvis: Back: no CVA tenderness Skin: General skin exam: normal color Rashes: no rashes Neuro: General: patient oriented x3 Cranial nerves: Yes Nystagmus not present Speech: normal speech Gait exam (Neuro): Normal gait present Extrem: General: normal to inspection Psych: Mental Status: mental status grossly normal Affect: normal affect Attitude: cooperative Course Course Emergency Course: this is a 24-year-old female patient who presents to the urgent care with complaints of fever, body aches, cough, sinus congestion for 2 and half days. Patient states that she has been taking the [id number] cough and cold medication with relief of symptoms. She denies any other chest pain, shortness a breath, headache or dizziness. No nausea, vomiting or diarrhea. vital signs stable influenza, covid strep testing ordered Patient was influenza A positive. Educated patient on treatment, with Tamiflu and we to symptomatic management. After discussing risks, side effects patient is agreeable to Tamiflu. Educated patient to Increase fluids, Rest, Continue with symptomatic management: -? Cough medication per package instructions -? Tylenol and motrin for fever and pain -? Cough drops for sore throat and cough -? Mucinex for congestion -? Vicks vapor rub -? Cool mist vaporizer Follow up with your primary MD in the next 2-3 days for further exam or Present to the ER for any worrisome sign or symptom. answered all her questions to her satisfaction she is agreeable plan. Patient denies any further needs or concerns to be addressed prior to discharge. Level of Care: Express Care Visit Vital Signs Vital signs: Vital Signs Temperature 97.9 F 03/12/25 09:19 Pulse Rate 107 H 03/12/25 09:19 Respiratory Rate 18 03/12/25 09:19 Blood Pressure 136/80 03/12/25 09:19 Pulse Oximetry 98 03/12/25 09:19 Oxygen Delivery Room Air 03/12/25 09:19 Temperature 97.9 F 03/12/25 09:19 Pulse Rate 107 H 03/12/25 09:19 Respiratory Rate 18 03/12/25 09:19 Blood Pressure 136/80 03/12/25 09:19 Pulse Oximetry 98 03/12/25 09:19 Oxygen Delivery Room Air 03/12/25 09:19 MDM MDM Narrative Medical decision making narrative: this is a 24-year-old female patient who presents to the urgent care with complaints of fever, body aches, cough, sinus congestion for 2 and half days. Patient states that she has been taking the [id number] cough and cold medication with relief of symptoms. She denies any other chest pain, shortness a breath, headache or dizziness. No nausea, vomiting or diarrhea. vital signs stable influenza, covid strep testing ordered Patient was influenza A positive. Educated patient on treatment, with Tamiflu and we to symptomatic management. After discussing risks, side effects patient is agreeable to Tamiflu. Educated patient to Increase fluids, Rest, Continue with symptomatic management: -? Cough medication per package instructions -? Tylenol and motrin for fever and pain -? Cough drops for sore throat and cough -? Mucinex for congestion -? Vicks vapor rub -? Cool mist vaporizer Follow up with your primary MD in the next 2-3 days for further exam or Present to the ER for any worrisome sign or symptom. answered all her questions to her satisfaction she is agreeable plan. Patient denies any further needs or concerns to be addressed prior to discharge. Differential Diagnosis Differential Diagnosis: Viral syndrome, influenza, COVID Medical Records I have reviewed the following patient records and this information was taken into consideration when formulating the assessment and plan.: previous labs and previous clinic visits Lab Data MDM Lab Attestation statement: I personally reviewed the patient's lab results. Lab results narrative: influenza A positive Influenza B negative COVID negative Strep negative Labs: Lab Results 03/12/25 Range/Units 09:12 POC Influenza A Ag Positive (Negative) POC Influenza B Ag Negative (Negative) POC SARS CoV-2 Ag Negative (Negative) POC Grp A Strep Screen Negative (Negative) Discharge Plan Discharge Clinical Impression: Influenza A Patient Disposition: Home Condition: Stable Instructions: Influenza (ED) Additional Instructions: Increase fluids Rest Take tamiflu as prescribed Continue with symptomatic management: -? Cough medication per package instructions -? Tylenol and motrin for fever and pain -? Cough drops for sore throat and cough -? Mucinex for congestion -? Vicks vapor rub -? Cool mist vaporizer Follow up with your primary MD in the next 2-3 days for further exam or Present to the ER for any worrisome sign or symptom Patient Language: Monegasque Prescriptions: New oseltamivir [Tamiflu] 75 mg capsule 75 mg PO Q12H 5 Days Qty: 10 0RF No Action metformin [Glucophage XR] 500 mg tablet extended release 24 hr 500 mg PO DAILY Qty: 90 0RF Follow-up/Referrals: PHYSICIAN NOT ON STAFF,NONSTAFF [Primary Care Provider] Time of Disposition: 09:39
[2025-03-12 09:31] LABS: EDCOVIDSCREEN Negative (Negative); EDINFLUASCREEN Positive (Negative); EDINFLUBSCREEN Negative (Negative); EDSTREPNEGPOS1 Negative (Negative)
== END 2025-03-12 09:53 | disposition home or self-care (01) ==
PROVIDERS: Emergency Provider Nurse Practitioner Family
DX: J10.1 Influenza due to other identified influenza virus with other respiratory manifestations (principal); Z20.822 Contact with and (suspected) exposure to COVID-19; E28.2 Polycystic ovarian syndrome
CPT/HCPCS: 87426; 87804; 87880; 99213; G0463